=== PATIENT | male | born 1985 | race Two or more races ===

== ENCOUNTER 2016-05-23 19:07 | Emergency (ER) | payer OTHER ==
[~2016-05-23] VITALS: Ht 162.6 cm; Wt 79.4 kg
[~2016-05-23 19:07] MED LIST: UNOBMED; ZOFRAN ODT4 MG ORAL
[2016-05-23] MEDS ORDERED: TESSALON PERLE100 MG ORAL (20:16)
[2016-05-23] MEDS ORDERED: AMOXICILLIN500 MG ORAL (20:16)
[2016-05-23 20:35] VITALS: BP 117/74
--- NOTE | 2016-05-23 22:50 | Emergency Room Report ---
History of Present Illness General Chief Complaint: Upper Respiratory Illness Source: Patient Present Illness [facility] The patient is a 30-year-old male presenting for fever, sore throat, cough, and headache which began 1 week prior and has been worsening. He denies any sick contacts or recent travel. He has tried [id number] cough medications which have not helped. Pain is described as an 8/10 dull ache to the back of the throat. Pain worse with cough. Produces a green to yellow sputum. The patient denies any other symptoms including neck pain or stiffness, photophobia , shortness of breath, chest pain, hemoptysis Allergies: Coded Allergies: No Known Allergies (Unverified , 06/09/14) Patient History Past Medical History: see triage record Pertinent Family History: none Reviewed Nursing Documentation: PMH: Agreed, PSxH: Agreed Review of Systems All Other Systems: negative except mentioned in HPI Physical Exam Vital Signs Date Time Temp Pulse Resp B/P Pulse Ox O2 Delivery O2 Flow Rate FiO2 05/23/16 19:25 98.1 91 17 113/76 98 Room Air Sp02 EP Interpretation: reviewed, normal General Appearance: no apparent distress, alert, GCS 15, non-toxic Head: normocephalic, atraumatic Eyes: bilateral eye PERRL, bilateral eye normal inspection ENT: hearing grossly normal, no angioedema, normal voice, tonsillar swelling, pharyngeal erythema Neck: full range of motion, supple/symm/no masses Respiratory: chest non-tender, lungs clear, normal breath sounds, no wheezing, speaking full sentences Cardiovascular #1: regular rate, rhythm, no edema Musculoskeletal: back normal, gait/station normal, normal range of motion, non- tender Neurologic: alert, oriented x3, responsive, motor strength/tone normal, sensory intact, speech normal Psychiatric: judgement/insight normal, memory normal, mood/affect normal, no suicidal/homicidal ideation Skin: normal color, no rash, warm/dry, well hydrated Lymphatic: adenopathy Medical Decision Making PA Attestation Dr. Robledo is my supervising physician. Patient management was discussed with my supervising physician Diagnostic Impression: Primary Impression: Pharyngitis, acute Qualified Codes: J02.9 - Acute pharyngitis, unspecified ER Course The patient is a 30-year-old male presenting for fever, sore throat, cough, and headache Differential diagnosis include but not limited to pharyngitis, sinusitis, AOM, bronchitis, PNA Physical exam: Vitals within normal limits. Afebrile. No apparent distress HEENT exam: There is bilateral tonsillar edema, erythema, and exudate. Uvula midline. Moist mucous membranes. There is bilateral cervical lymphadenopathy. Lungs are clear to auscultation bilaterally Skin is warm and dry. No rash The patient will be discharged home with a prescription for amoxicillin and is given ER precautions. Patient will followup with primary care Last Vital Signs Date Time Temp Pulse Resp B/P Pulse Ox O2 Delivery O2 Flow Rate FiO2 05/23/16 20:35 98.9 87 15 117/74 99 Room Air Status: improved Disposition: HOME, SELF-CARE Condition: Improved Scripts Benzonatate* (TESSALON PERLE*) 100 Mg Capsule 100 MG ORAL THREE TIMES A DAY, #30 PERLE Prov: JOSE ORTIZ P.A. 05/23/16 Amoxicillin* (AMOXIL*) 500 Mg Capsule 500 MG ORAL Q12HR, #20 CAP Prov: JOSE ORTIZ.A. 05/23/16 Referrals: Jannie PACK,REFERRING (PCP) Patient Instructions: Sore Throat Additional Instructions: I discussed my findings with the patient. All questions and concerns have been answered. Treatment and medication compliance have been addressed. I advised the patient that they need to follow up with PMD in 3-5 days. Return to ED if pain remains or worsens, cough worsens or remains, you notice blood in your sputum, you notice wheezing, you experience a fever, or if needed for any reason. Patient verbalized understanding of discharge instructions. JOSE ORTIZ May 23, 2016 22:50
== END 2016-05-23 20:36 | disposition home or self-care (01) ==
LOC: EMR 19:59
DX: J02.9 Acute pharyngitis, unspecified (principal)
CPT/HCPCS: 99284

== ENCOUNTER 2016-07-02 00:55 | Emergency (ER) | payer OTHER ==
[~2016-07-02] VITALS: Ht 162.6 cm; Wt 79.4 kg
[~2016-07-02 00:55] MED LIST changes: +AMOXICILLIN500 MG ORAL; +TESSALON PERLE100 MG ORAL
[2016-07-02 01:15] VITALS: BP 125/76
[2016-07-02] MEDS ORDERED: LORazepam Inj 2mg/ml 1ml IV ONE ×3 (02:00→04:00)
[2016-07-02 02:41] LABS: BASOPHILS % (AUTO) 1.3 % (0.0-2.0); EOSINOPHILS % (AUTO) 3.5 % (0.0-3.0); LYMPHOCYTES % (AUTO) 34.2 % (20.0-45.0); MEAN CORPUSCULAR HEMOGLOBIN 31.4 PG (27.0-31.0); MEAN CORPUSCULAR HGB CONC 34.3 G/DL (32.0-36.0); MEAN CORPUSCULAR VOLUME 91 FL (80-99); MEAN PLATELET VOLUME 11.2 FL (6.5-10.1); MONOCYTES % (AUTO) 6.1 % (1.0-10.0); NEUTROPHILS % (AUTO) 54.8 % (45.0-75.0); PLATELET COUNT 198 K/UL (150-450); RED BLOOD COUNT 5.38 M/UL (4.70-6.10); WHITE BLOOD COUNT 10.2 K/UL (4.8-10.8)
[2016-07-02 02:59] LABS: ACETAMINOPHEN < 10 ug/mL (10-30); ALANINE AMINOTRANSFERASE 83 U/L (3-41); ALBUMIN/GLOBULIN RATIO 1.4 (1.0-2.7); ALCOHOL < 10 mg/dL; ANION GAP 16 (5-15); ASPARTATE AMINO TRANSFERASE 50 U/L (5-40); CALCIUM 9.4 mg/dL (8.6-10.2); CARBON DIOXIDE 24 mEQ/L (20-30); CHLORIDE 102 mEQ/L (98-107); CREATININE 0.7 mg/dL (0.7-1.2); GLOMERULAR FILTRATION RATE > 60 mL/min (>60); HEMOLYSIS 13; POTASSIUM 4.5 mEQ/L (3.4-4.9); SODIUM 142 mEQ/L (135-145); TOTAL PROTEIN 7.7 g/dL (6.6-8.7)
[2016-07-02 03:00] VITALS: BP 127/78
[2016-07-02] MEDS ORDERED: LIBRIUM25 MG ORAL (04:14)
[2016-07-02 05:00] VITALS: BP 114/81
[2016-07-02 06:00] VITALS: BP 115/82
[2016-07-02 06:05] VITALS: BP 115/82
--- NOTE | 2016-07-02 07:15 | Emergency Room Report ---
History of Present Illness General Chief Complaint: Headache Source: Patient Present Illness HPI 30-year-old male presents to ED for evaluation. States that he feels very anxious and is shaking. States he was drinking every day for several days but his last drink was approximately 4 days ago. Feels like he is going through withdrawals. Patient states he has history of chronic alcohol use has had withdrawal in the past. Denies any other drug use. Denies chest pain or shortness of breath. Notes nausea, denies vomiting. No other aggravating relieving factors. Denies any other associated symptoms Allergies: Coded Allergies: No Known Allergies (Unverified , 06/09/14) Patient History Past Medical History: none Past Surgical History: none Pertinent Family History: none Social History: Reports: alcohol use, Denies: drug use, smoking Immunizations: UTD Reviewed Nursing Documentation: PMH: Agreed, PSxH: Agreed Review of Systems All Other Systems: negative except mentioned in HPI Physical Exam Vital Signs Date Time Temp Pulse Resp B/P Pulse Ox O2 Delivery O2 Flow Rate FiO2 07/02/16 01:06 98.1 96 16 129/75 96 Room Air Sp02 EP Interpretation: reviewed, normal General Appearance: no apparent distress, alert, GCS 15, non-toxic Head: normocephalic, atraumatic Eyes: bilateral eye PERRL, bilateral eye normal inspection ENT: hearing grossly normal, normal pharynx, no angioedema, normal voice Neck: full range of motion, supple/symm/no masses Respiratory: chest non-tender, lungs clear, normal breath sounds, speaking full sentences Cardiovascular #1: regular rate, rhythm, no edema Cardiovascular #2: 2+ carotid (R), 2+ carotid (L), 2+ radial (R), 2+ radial (L) , 2+ dorsalis pedis (R), 2+ dorsalis pedis (L) Gastrointestinal: normal bowel sounds, non tender, soft, non-distended, no guarding, no rebound Rectal: deferred Genitourinary: normal inspection, no CVA tenderness Musculoskeletal: back normal, gait/station normal, normal range of motion, non- tender Neurologic: alert, oriented x3, responsive, motor strength/tone normal, sensory intact, speech normal Psychiatric: judgement/insight normal, memory normal, no suicidal/homicidal ideation, anxious Reflexes: 3+ bicep (R), 3+ bicep (L), 3+ tricep (R), 3+ tricep (L), 3+ knee (R) , 3+ knee (L) Skin: normal color, no rash, warm/dry, well hydrated Lymphatic: no adenopathy Medical Decision Making Diagnostic Impression: Primary Impression: Anxiety Additional Impression: Alcohol withdrawal Qualified Codes: F10.230 - Alcohol dependence with withdrawal, uncomplicated ER Course Hospital Course 30-year-old male presents ED complaining of shaking, stating he is in withdrawal. Chronic history of alcohol use Differential diagnoses include: Alcohol intoxication, drug abuse, opioid withdrawal, alcohol withdrawal, dehydration, drug seeking behavior Clinical course Patient placed on stretcher. On front desk monitor. After initial history and physical I ordered labs, IV fluids, Ativan Labs reviewed-electrolytes okay, hemoglobin/hematocrit stable, no leukocytosis, alcohol level < 10, aspirin/Tylenol levels negative no signs of acute withdrawal or DTs. patient can be safely discharged to home i. I feel this is a highly complex case requiring extensive working including EKG/Rhythm strip, Xray/CT/US, Blood/urine lab work, repeat exams while in ED, and administration of strong opiates/narcotics for pain control, admission to hospital or close patient follow up. Diagnosis - anxiety, alcohol withdrawal Stable and discharged to home with prescription for Librium. Followup with PMD. Return to ED if symptoms recur or worsen Labs Test 07/02/16 02:20 07/02/16 02:25 Urine Opiates Screen Negative (NEGATIVE) Urine Barbiturates Screen Negative (NEGATIVE) Phencyclidine (PCP) Screen Negative (NEGATIVE) Urine Amphetamines Screen Negative (NEGATIVE) Urine Benzodiazepines Screen Negative (NEGATIVE) Urine Cocaine Screen Negative (NEGATIVE) Urine Marijuana (THC) Screen Negative (NEGATIVE) White Blood Count 10.2 K/UL (4.8-10.8) Red Blood Count 5.38 M/UL (4.70-6.10) Hemoglobin 16.9 G/DL (14.2-18.0) Hematocrit 49.2 % (42.0-52.0) Mean Corpuscular Volume 91 FL (80-99) Mean Corpuscular Hemoglobin 31.4 PG (27.0-31.0) Mean Corpuscular Hemoglobin Concent 34.3 G/DL (32.0-36.0) Red Cell Distribution Width 12.0 % (11.6-14.8) Platelet Count 198 K/UL (150-450) Mean Platelet Volume 11.2 FL (6.5-10.1) Neutrophils (%) (Auto) 54.8 % (45.0-75.0) Lymphocytes (%) (Auto) 34.2 % (20.0-45.0) Monocytes (%) (Auto) 6.1 % (1.0-10.0) Eosinophils (%) (Auto) 3.5 % (0.0-3.0) Basophils (%) (Auto) 1.3 % (0.0-2.0) Sodium Level 142 mEQ/L (135-145) Potassium Level 4.5 mEQ/L (3.4-4.9) Chloride Level 102 mEQ/L (98-107) Carbon Dioxide Level 24 mEQ/L (20-30) Anion Gap 16 (5-15) Blood Urea Nitrogen 20 mg/dL (7-23) Creatinine 0.7 mg/dL (0.7-1.2) Estimat Glomerular Filtration Rate > 60 mL/min (>60) Glucose Level 99 mg/dL (74-106) Calcium Level 9.4 mg/dL (8.6-10.2) Total Bilirubin 0.7 mg/dL (0.0-1.2) Aspartate Amino Transf (AST/SGOT) 50 U/L (5-40) Alanine Aminotransferase (ALT/SGPT) 83 U/L (3-41) Alkaline Phosphatase 162 U/L (40-129) Total Protein 7.7 g/dL (6.6-8.7) Albumin 4.5 g/dL (3.5-5.2) Globulin 3.2 g/dL Albumin/Globulin Ratio 1.4 (1.0-2.7) Salicylates Level < 1 mg/dL (10-30) Acetaminophen Level < 10 ug/mL (10-30) Serum Alcohol < 10 mg/dL Last Vital Signs Date Time Temp Pulse Resp B/P Pulse Ox O2 Delivery O2 Flow Rate FiO2 07/02/16 06:05 98.2 71 17 115/82 100 Room Air Status: improved Disposition: HOME, SELF-CARE Condition: Stable Scripts Chlordiazepoxide (Chlordiazepoxide HCl) 25 Mg Capsule 25 MG ORAL THREE TIMES A DAY, #15 CAP 0 Refills Prov: [place],JOVANI M.D. 07/02/16 Patient Instructions: Alcohol Intoxication, Eqef-ke-Vavy JOVANI RAMESH M.D. July 02, 2016 07:15
--- NOTE | 2016-07-02 09:26 | Diagnostic Imaging Report ---
Indication: Headache Technique: Continuous helical CT scanning of the head was performed without intravenous contrast material. Axial and coronal 5 mm sections were generated. Radiation dose was minimized using automated exposure control Dose: Total Dose Length Product - DLP [address] Dose Index - CTDIvol(s) 70.38 mGy. Comparison: 06/09/2014 Findings: The ventricular system is normal in size and configuration. There is no shift of midline structures. No abnormal extra-axial fluid collections are noted. There is no evidence of intracerebral bleeding. No other abnormal high or low density areas are noted within the brain. Calvarium is intact. Orbits and sinuses are unremarkable Impression: Normal CT scan of the head without contrast material. This agrees with the preliminary interpretation provided overnight by [facility]. The CT scanner at [facility] is accredited by the [employer] and the scans are performed using protocols designed to limit radiation exposure to as low as reasonably achievable to attain images of sufficient resolution adequate for diagnostic evaluation.
== END 2016-07-02 06:00 | disposition home or self-care (01) ==
LOC: EMR 01:25
DX: F10.239 Alcohol dependence with withdrawal, unspecified (principal); F41.9 Anxiety disorder, unspecified
CPT/HCPCS: 36415; 70450; 80053; 80300; 80329; 85025; 96360; 96374; 96375; 99284; J2405

== ENCOUNTER 2016-07-23 01:56 | Emergency (ER) | payer OTHER ==
[~2016-07-23] VITALS: Ht 162.6 cm; Wt 79.4 kg
[~2016-07-23 01:56] MED LIST changes: +LIBRIUM25 MG ORAL
--- NOTE | 2016-07-23 02:47 | Emergency Room Report ---
History of Present Illness General Chief Complaint: General Complaint Source: Patient Present Illness HPI Patient presents reporting that he was binge shaking last week fairly heavily now that he stopped over the past few days he feels tremulous He felt nauseated Decreased appetite Denies any headache or visual changes denies any chest pain or shortness of breath denies any vomiting of blood or any blood in the stool Patient has had previous alcohol abuse Allergies: Coded Allergies: No Known Allergies (Unverified , 07/23/16) Patient History Past Medical History: see triage record Pertinent Family History: none Reviewed Nursing Documentation: PMH: Agreed, PSxH: Agreed Nursing Documentation-PMH Past Medical History: No History, Except For Review of Systems All Other Systems: negative except mentioned in HPI Physical Exam Vital Signs Date Time Temp Pulse Resp B/P Pulse Ox O2 Delivery O2 Flow Rate FiO2 07/23/16 02:17 98.1 102 16 145/99 96 Room Air Sp02 EP Interpretation: reviewed, normal General Appearance: well appearing, no apparent distress Head: normocephalic, atraumatic Eyes: bilateral eye EOMI, bilateral eye PERRL ENT: hearing grossly normal, normal pharynx, TMs + canals normal, uvula midline Neck: full range of motion, supple, no meningismus, no bony tend Respiratory: lungs clear, normal breath sounds, no rhonchi, no respiratory distress, no retraction, no accessory muscle use Cardiovascular #1: normal peripheral pulses, regular rate, rhythm, no edema, no gallop, no JVD, no murmur Gastrointestinal: normal bowel sounds, non tender, soft, no mass, no organomegaly, non-distended, no guarding, no hernia, no pulsatile mass, no rebound Genitourinary: no CVA tenderness Musculoskeletal: normal inspection Neurologic: oriented x3, responsive, distribution manager III-XII nml as tested, motor strength/ tone normal, sensory intact Psychiatric: mood/affect normal Skin: normal color, no rash, warm/dry, palpation normal Lymphatic: normal inspection, no adenopathy Medical Decision Making Diagnostic Impression: Primary Impression: Alcohol abuse ER Course On evaluation patient has a normal heart rate does not appear tremulous However given his symptoms and the recent alcohol ingestion I did provide him with Ativan for symptomatic improvement At this time patient is on a criteria for further blood work in the emergency room he has had fairly recent evaluation with extensive blood work At this time was provided outpatient resource for alcohol abuse Patient however apparently left prior to further intervention and eloped prior to final reevaluation Last Vital Signs Date Time Temp Pulse Resp B/P Pulse Ox O2 Delivery O2 Flow Rate FiO2 07/23/16 02:17 98.1 102 16 145/99 96 Room Air Status: unchanged Disposition: ELOPED Condition: Stable Referrals: [facility]ERR[facility] (PCP) AB SANCHEZ D.O. Jul 23, 2016 02:47
[2016-07-23] MEDS: LORazepam Inj 2mg/ml 1ml IM ONE ×2 (02:54→02:59)
[2016-07-23 03:00] VITALS: BP 145/99
== END 2016-07-23 03:00 | disposition left against medical advice (07) ==
LOC: EMR 02:42
DX: F10.10 Alcohol abuse, uncomplicated (principal)
CPT/HCPCS: 99284

== ENCOUNTER 2016-12-19 00:46 | Emergency (ER) | payer OTHER ==
[~2016-12-19] VITALS: Ht 162.6 cm; Wt 80.7 kg
--- NOTE | 2016-12-19 00:49 | Emergency Room Report ---
History of Present Illness General Chief Complaint: To Be Triaged Source: Patient, Medical Record Present Illness HPI 31YOM with 3 days sore throat, pain in center when swallowing, subjective fever , dry cough, associated with left sided headache Didnt get flu vaccine this year No sick contacts ?history of asthma Non-smoker Denies rhinorrhea, congestion Multiple visits here for ETOH abuse Allergies: Coded Allergies: No Known Allergies (Unverified , 07/23/16) Patient History Past Medical History: none Past Surgical History: none Pertinent Family History: none Social History: Reports: alcohol use Review of Systems All Other Systems: negative except mentioned in HPI Physical Exam Sp02 EP Interpretation: reviewed, normal General Appearance: normal inspection, well appearing, no apparent distress, alert, GCS 15, non-toxic Head: normocephalic, atraumatic Eyes: bilateral eye PERRL, bilateral eye EOMI ENT: normal ENT inspection, hearing grossly normal, normal pharynx, no angioedema, normal voice, TMs + canals normal, uvula midline, moist mucus membranes Neck: normal inspection, full range of motion, supple, no bony tend Respiratory: normal inspection, lungs clear, normal breath sounds, no respiratory distress, no retraction, no accessory muscle use, no wheezing, speaking full sentences Cardiovascular #1: regular rate, rhythm, no edema Gastrointestinal: normal inspection, normal bowel sounds, non tender, soft, no guarding, no hernia Genitourinary: no CVA tenderness Musculoskeletal: normal inspection, back normal, normal range of motion, Junior' s Sign negative Neurologic: normal inspection, alert, oriented x3, responsive, 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 Afebrile Mild tachycardia but not hypoxic Lungs CTAB. No wheezing or rhonchi No sign of acute strep infection in oropharynx Given IM toradol, Albuterol Likely viral infection, bronchitis Rx Ibuprofen, MDI ventolin PMD followup [facility] ome Status: improved Disposition: HOME, SELF-CARE BENNETT JADE M.D. Dec 19, 2016 00:48
--- NOTE | 2016-12-19 00:49 | Emergency Room Report ---
History of Present Illness General Chief Complaint: To Be Triaged Source: Patient, Medical Record Present Illness HPI 31YOM with 3 days sore throat, pain in center when swallowing, subjective fever , dry cough, associated with left sided headache Didnt get flu vaccine this year No sick contacts ?history of asthma Non-smoker Denies rhinorrhea, congestion Multiple visits here for ETOH abuse Allergies: Coded Allergies: No Known Allergies (Unverified , 07/23/16) Patient History Past Medical History: none Past Surgical History: none Pertinent Family History: none Social History: Reports: alcohol use Review of Systems All Other Systems: negative except mentioned in HPI Physical Exam Sp02 EP Interpretation: reviewed, normal General Appearance: normal inspection, well appearing, no apparent distress, alert, GCS 15, non-toxic Head: normocephalic, atraumatic Eyes: bilateral eye PERRL, bilateral eye EOMI ENT: normal ENT inspection, hearing grossly normal, normal pharynx, no angioedema, normal voice, TMs + canals normal, uvula midline, moist mucus membranes Neck: normal inspection, full range of motion, supple, no bony tend Respiratory: normal inspection, lungs clear, normal breath sounds, no respiratory distress, no retraction, no accessory muscle use, no wheezing, speaking full sentences Cardiovascular #1: regular rate, rhythm, no edema Gastrointestinal: normal inspection, normal bowel sounds, non tender, soft, no guarding, no hernia Genitourinary: no CVA tenderness Musculoskeletal: normal inspection, back normal, normal range of motion, Junior' s Sign negative Neurologic: normal inspection, alert, oriented x3, responsive, clinical pharmacologist III-XII nml as tested, speech normal Psychiatric: normal inspection, judgement/insight normal, mood/affect normal Skin: normal inspection, normal color, no rash Medical Decision Making Diagnostic Impression: Primary Impression: Viral respiratory illness Additional Impressions: Bronchitis Pharyngitis Qualified Codes: J02.9 - Acute pharyngitis, unspecified ER Course VSS. Afebrile Mild tachycardia but not hypoxic Lungs CTAB. No wheezing or rhonchi No sign of acute strep infection in oropharynx Given IM toradol, Albuterol Likely viral infection, bronchitis Rx Ibuprofen, MDI ventolin PMD followup [facility] ome Status: improved Disposition: HOME, SELF-CARE BENNETT JADE M.D. Dec 19, 2016 00:48
--- NOTE | 2016-12-19 00:49 | Emergency Room Report ---
History of Present Illness General Chief Complaint: To Be Triaged Source: Patient, Medical Record Present Illness HPI 31YOM with 3 days sore throat, pain in center when swallowing, subjective fever , dry cough, associated with left sided headache Didnt get flu vaccine this year No sick contacts ?history of asthma Non-smoker Denies rhinorrhea, congestion Multiple visits here for ETOH abuse Allergies: Coded Allergies: No Known Allergies (Unverified , 07/23/16) Patient History Past Medical History: none Past Surgical History: none Pertinent Family History: none Social History: Reports: alcohol use Review of Systems All Other Systems: negative except mentioned in HPI Physical Exam Sp02 EP Interpretation: reviewed, normal General Appearance: normal inspection, well appearing, no apparent distress, alert, GCS 15, non-toxic Head: normocephalic, atraumatic Eyes: bilateral eye PERRL, bilateral eye EOMI ENT: normal ENT inspection, hearing grossly normal, normal pharynx, no angioedema, normal voice, TMs + canals normal, uvula midline, moist mucus membranes Neck: normal inspection, full range of motion, supple, no bony tend Respiratory: normal inspection, lungs clear, normal breath sounds, no respiratory distress, no retraction, no accessory muscle use, no wheezing, speaking full sentences Cardiovascular #1: regular rate, rhythm, no edema Gastrointestinal: normal inspection, normal bowel sounds, non tender, soft, no guarding, no hernia Genitourinary: no CVA tenderness Musculoskeletal: normal inspection, back normal, normal range of motion, Junior' s Sign negative Neurologic: normal inspection, alert, oriented x3, responsive, 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 Afebrile Mild tachycardia but not hypoxic Lungs CTAB. No wheezing or rhonchi No sign of acute strep infection in oropharynx Given IM toradol, Albuterol Likely viral infection, bronchitis Rx Ibuprofen, MDI ventolin PMD followup [facility] ome Status: improved Disposition: HOME, SELF-CARE BENNETT JADE M.D. Dec 19, 2016 00:48
[2016-12-19 00:52] VITALS: BP 117/75
[2016-12-19] MEDS ORDERED: Ketorolac 60mg Inj IM ONE (01:00)
[2016-12-19] MEDS ORDERED: Albuterol ud Inhalation HHN ONE (01:00)
[2016-12-19] MEDS ORDERED: VENTOLIN HFA18 GM INH (01:03)
[2016-12-19] MEDS ORDERED: IBUPROFEN600 MG ORAL (01:03)
[2016-12-19 01:29] VITALS: BP 117/75
== END 2016-12-19 01:41 | disposition home or self-care (01) ==
LOC: EMR 01:03
DX: J20.8 Acute bronchitis due to other specified organisms (principal); J02.8 Acute pharyngitis due to other specified organisms; B97.89 Other viral agents as the cause of diseases classified elsewhere
CPT/HCPCS: 96372; 99283

== ENCOUNTER 2017-02-12 20:28 | Emergency (ER) | payer OTHER ==
[~2017-02-12] VITALS: Ht 162.6 cm; Wt 81.6 kg
[~2017-02-12 20:28] MED LIST changes: +IBUPROFEN600 MG ORAL; +VENTOLIN HFA18 GM INH
[2017-02-12 20:45] VITALS: BP 108/76
[2017-02-12 22:40] LABS: BASOPHILS % (AUTO) 0.9 % (0.0-2.0); EOSINOPHILS % (AUTO) 0.7 % (0.0-3.0); HEMATOCRIT 52.8 % (42.0-52.0); HEMOGLOBIN 16.1 G/DL (14.2-18.0); LYMPHOCYTES % (AUTO) 32.2 % (20.0-45.0); MEAN CORPUSCULAR VOLUME 94 FL (80-99); NEUTROPHILS % (AUTO) 60.3 % (45.0-75.0); PLATELET COUNT 227 K/UL (150-450); RED BLOOD COUNT 5.63 M/UL (4.70-6.10); RED CELL DISTRIBUTION WIDTH 11.8 % (11.6-14.8); WHITE BLOOD COUNT 9.4 K/UL (4.8-10.8)
[2017-02-12 22:45] VITALS: BP 111/65
[2017-02-13 00:45] VITALS: BP 119/70
[2017-02-13 02:45] VITALS: BP 118/78
[2017-02-13 04:05] VITALS: BP 121/71
[2017-02-13] MEDS ORDERED: PRILOSEC OTC20 MG ORAL (04:15)
--- NOTE | 2017-02-13 04:16 | Emergency Room Report ---
History of Present Illness General Chief Complaint: Vomiting Source: Medical Record, EMS Present Illness HPI Is a 31-year-old male who has a history of alcohol abuse, cirrhosis and hepatitis C. He called 911 from a liquor store. He said his vomiting blood. Unable to give a history here because of his severe intoxication. He has no vomiting here. Present meds alcohol use per EMS. No other complaint. No trauma. Allergies: Coded Allergies: No Known Allergies (Unverified , 07/23/16) Patient History Past Medical History: see triage record, old chart reviewed Past Surgical History: none Pertinent Family History: none Social History: Reports: alcohol use Immunizations: other Reviewed Nursing Documentation: PMH: Agreed, PSxH: Agreed Review of Systems Gastrointestinal: Reports: nausea, vomiting All Other Systems: limited - Secondary to intoxication Physical Exam Vital Signs Date Time Temp Pulse Resp B/P (MAP) Pulse Ox O2 Delivery O2 Flow Rate FiO2 02/12/17 20:41 97.9 110 16 108/76 97 Room Air vitals unremarkable Sp02 EP Interpretation: reviewed, normal General Appearance: well appearing, no apparent distress, alert, other - Intoxicated Head: normocephalic, atraumatic Eyes: bilateral eye PERRL, bilateral eye EOMI ENT: hearing grossly normal, normal pharynx Neck: full range of motion, supple, no meningismus Respiratory: chest non-tender, lungs clear, normal breath sounds Cardiovascular #1: regular rate, rhythm, no murmur Gastrointestinal: normal bowel sounds, non tender, no mass, no organomegaly, no bruit, non-distended Musculoskeletal: back normal, normal range of motion Skin: warm/dry Medical Decision Making Diagnostic Impression: Primary Impression: Alcohol intoxication Additional Impression: Alcoholic gastritis with bleeding Qualified Codes: K29.21 - Alcoholic gastritis with bleeding ER Course Patient with alcohol intoxication and gastritis. No active bleeding here. Hemoglobin is stable. We'll discharge home. His high risk for variceal bleed and any doesn't stop drinking. We'll observe patient until clinical sobriety. Last Vital Signs Date Time Temp Pulse Resp B/P (MAP) Pulse Ox O2 Delivery O2 Flow Rate FiO2 02/12/17 20:41 97.9 110 16 108/76 97 Room Air Status: improved Disposition: HOME, SELF-CARE Condition: Stable Scripts Omeprazole Magnesium (PRILOSEC OTC) 20 Mg Tablet.dr 20 MG ORAL DAILY, #30 TAB Prov: RONALD PRITCHETT M.D. 02/13/17 Referrals: [facility] (PCP) Additional Instructions: Stop drinking alcohol. This will kill you. Followup with your DrNhung in 7 days. Return if worse. RONALD PRITCHETT M.D. Feb 13, 2017 04:16
[2017-03-31] MEDS ORDERED: NORCO 5-325 TA1 EAC1 ORAL (16:43)
[2017-03-31] MEDS ORDERED: ZANTAC150 MG ORAL (18:35)
[2017-03-31] MEDS ORDERED: LIDOCAINE VISC100 ML ORAL (18:35)
== END 2017-02-13 04:05 | disposition home or self-care (01) ==
LOC: EDBD 20:28 → EMR 20:40
DX: F10.129 Alcohol abuse with intoxication, unspecified (principal); K29.21 Alcoholic gastritis with bleeding; K70.30 Alcoholic cirrhosis of liver without ascites; B19.20 Unspecified viral hepatitis C without hepatic coma
CPT/HCPCS: 36415; 85025; 99283

== ENCOUNTER 2017-03-06 16:49 | Emergency (ER) | payer OTHER ==
[~2017-03-06] VITALS: Ht 162.6 cm; Wt 81.6 kg
[~2017-03-06 16:49] MED LIST changes: +PRILOSEC OTC20 MG ORAL
--- NOTE | 2017-03-06 17:35 | Emergency Room Report ---
History of Present Illness General Chief Complaint: General Complaint Source: Patient Present Illness HPI Patient is a 31-year-old male who presents today with complaints of coughing and he dislocated his jaw on 02/20/2017 and had surgery on the . He has been taking Temple and with some relief of the pain. He is also complaining of a temperature of 103 in earlier today and. Last dose of Tylenol to this morning , patient afebrile on arrival.Patient is complaining of a foul odor from his mouth. He denies any nausea, vomiting, or associated symptoms. Allergies: Coded Allergies: No Known Allergies (Unverified , 07/23/16) Patient History Reviewed Nursing Documentation: PMH: Agreed, PSxH: Agreed Nursing Documentation-PMH Past Medical History: No History, Except For Hx Cardiac Problems: No - HEP C, ANEMIA, Jaw dislocation surgery. Hx Hypertension: No Hx Pacemaker: No Hx Asthma: No Hx COPD: No Hx Diabetes: No Hx Cancer: No Hx Gastrointestinal Problems: Yes - LIVER CIRRHOSIS,GASTRITIS Hx Dialysis: No History Of Psychiatric Problem: No Hx Neurological Problems: No Hx Cerebrovascular Accident: No Hx Seizures: No Review of Systems Musculoskeletal: Reports: other - jaw pain All Other Systems: negative except mentioned in HPI Physical Exam Vital Signs Date Time Temp Pulse Resp B/P (MAP) Pulse Ox O2 Delivery O2 Flow Rate FiO2 03/06/17 16:53 98.1 88 16 118/74 95 Room Air Sp02 EP Interpretation: reviewed, normal General Appearance: no apparent distress, alert, GCS 15, non-toxic Head: normocephalic, atraumatic Eyes: bilateral eye normal inspection, bilateral eye PERRL ENT: hearing grossly normal, normal pharynx, no angioedema, normal voice, other - mild edema of left jaw, no abscess noted. uvula midline, no ludwigs angina Neck: full range of motion, supple/symm/no masses Respiratory: chest non-tender, lungs clear, normal breath sounds, speaking full sentences Cardiovascular #1: regular rate, rhythm, no edema Cardiovascular #2: 2+ carotid (R), 2+ carotid (L), 2+ radial (R), 2+ radial (L) , 2+ dorsalis pedis (R), 2+ dorsalis pedis (L) Gastrointestinal: normal bowel sounds, non tender, soft, non-distended, no guarding, no rebound Rectal: deferred Genitourinary: normal inspection, no CVA tenderness Musculoskeletal: back normal, gait/station normal, normal range of motion, non- tender, calf tenderness Neurologic: alert, oriented x3, responsive, motor strength/tone normal, sensory intact, speech normal Psychiatric: judgement/insight normal, memory normal, mood/affect normal, no suicidal/homicidal ideation Reflexes: 3+ bicep (R), 3+ bicep (L), 3+ tricep (R), 3+ tricep (L), 3+ knee (R) , 3+ knee (L) Skin: normal color, no rash, warm/dry, well hydrated Lymphatic: no adenopathy Medical Decision Making PA Attestation supervising physician Dr. Salamanca Diagnostic Impression: Primary Impression: History of oral surgery Additional Impression: Jaw pain ER Course Will treat empirically with antibiotics. No obvious abscess or cellulitis noted. Dr. Salamanca personally evaluated the patient in treatment disposition. Patient and has followup with surgeon early next week. The patient understands plan and is agreeable. Last Vital Signs Date Time Temp Pulse Resp B/P (MAP) Pulse Ox O2 Delivery O2 Flow Rate FiO2 03/06/17 16:53 98.1 88 16 118/74 95 Room Air Status: improved Disposition: HOME, SELF-CARE Condition: Stable Patient Instructions: Jaw Dislocation, [id number] Gabby Brooks Mar 06, 2017 17:34
[2017-03-06] MEDS ORDERED: CLINDAMYCIN HC300 MG ORAL (17:36)
[2017-03-06 17:54] VITALS: BP 118/74
[2017-03-31] MEDS ORDERED: NORCO 5-325 TA1 EAC1 ORAL (16:43)
[2017-03-31] MEDS ORDERED: LIDOCAINE VISC100 ML ORAL (18:35)
[2017-03-31] MEDS ORDERED: ZANTAC150 MG ORAL (18:35)
== END 2017-03-06 17:59 | disposition home or self-care (01) ==
LOC: EMR 17:52
DX: R68.84 Jaw pain (principal); Z98.890 Other specified postprocedural states; B19.20 Unspecified viral hepatitis C without hepatic coma; K74.60 Unspecified cirrhosis of liver
CPT/HCPCS: 99283

== ENCOUNTER → 2017-03-31 | Emergency (ER) | payer OTHER ==
[~2017-03-31] VITALS: Ht 162.6 cm; Wt 81.6 kg
[~2017-03-31] MED LIST changes: +CLINDAMYCIN HC300 MG ORAL; +LIBRIUM10 MG ORAL; +LIDOCAINE VISC100 ML ORAL; +LORazepam Inj 2mg/ml 1ml IV ONE; +Morphine Sulfate 4mg/ml Inj IVP ONE; +NORCO 5-325 TA1 EAC1 ORAL; +PEPCID20 MG ORAL; +ZANTAC150 MG ORAL
[2017-03-31 17:05] VITALS: BP 150/77
[2017-03-31 18:12] LABS: HEMATOCRIT 47.2 % (42.0-52.0); HEMOGLOBIN 16.3 G/DL (14.2-18.0); MEAN CORPUSCULAR VOLUME 91 FL (80-99); PLATELET COUNT 96 K/UL (150-450); RED BLOOD COUNT 5.21 M/UL (4.70-6.10); RED CELL DISTRIBUTION WIDTH 12.1 % (11.6-14.8); WHITE BLOOD COUNT 5.8 K/UL (4.8-10.8)
[2017-03-31 18:17] LABS: ANION GAP 6 mmol/L (5-15); BLOOD UREA NITROGEN 8 mg/dL (7-18); CALCIUM 8.8 MG/DL (8.5-10.1); CARBON DIOXIDE 29 MMOL/L (21-32); CHLORIDE 100 MMOL/L (98-107); CREATININE 0.7 MG/DL (0.55-1.30); POTASSIUM 3.7 MMOL/L (3.5-5.1); SODIUM 135 MMOL/L (136-145)
[2017-03-31 18:27] LABS: ALANINE AMINOTRANSFERASE 107 U/L (12-78); ALBUMIN 3.7 G/DL (3.4-5.0); ALKALINE PHOSPHATASE 101 U/L (46-116); ASPARTATE AMINO TRANSFERASE 137 U/L (15-37); BILIRUBIN,TOTAL 1.8 MG/DL (0.2-1.0)
[2017-03-31 18:32] LABS: BILIRUBIN,DIRECT 0.2 MG/DL (0.0-0.3)
[2017-03-31 19:46] VITALS: BP 150/77
--- NOTE | 2017-03-31 21:11 | Emergency Room Report ---
History of Present Illness General Chief Complaint: Nausea, Vomiting, and Diarrhea Source: Patient Present Illness HPI 31-year-old male presents ED complaining of abdominal pain with nausea and vomiting. Started today. History of gastritis. Pain is epigastric, 8/10, nonradiating. Notes multiple episodes of nausea and vomiting. She feels very anxious. History of anxiety. Denies chest pain or shortness of breath. Denies fevers or chills. No other aggravating relieving factors. Denies any other associated symptoms Allergies: Coded Allergies: No Known Allergies (Unverified , 07/23/16) Patient History Past Medical History: GERD, psych hx Past Surgical History: none Pertinent Family History: none Social History: Denies: smoking, alcohol use, drug use Immunizations: UTD Reviewed Nursing Documentation: PMH: Agreed, PSxH: Agreed Nursing Documentation-PMH Past Medical History: No History, Except For Hx Cardiac Problems: No - HEP C, ANEMIA, Jaw dislocation surgery. Hx Hypertension: No Hx Pacemaker: No Hx Asthma: No Hx COPD: No Hx Diabetes: No Hx Cancer: No Hx Gastrointestinal Problems: Yes - LIVER CIRRHOSIS,GASTRITIS Hx Dialysis: No Hx Neurological Problems: No Hx Cerebrovascular Accident: No Hx Seizures: No Review of Systems All Other Systems: negative except mentioned in HPI Physical Exam Vital Signs Date Time Temp Pulse Resp B/P (MAP) Pulse Ox O2 Delivery O2 Flow Rate FiO2 03/31/17 16:39 98.1 95 20 150/77 98 Room Air 98.1 Sp02 EP Interpretation: reviewed, normal General Appearance: alert, GCS 15, non-toxic Head: normocephalic, atraumatic Eyes: bilateral eye normal inspection, bilateral eye PERRL ENT: hearing grossly normal, normal pharynx, no angioedema, normal voice Neck: full range of motion, supple/symm/no masses Respiratory: chest non-tender, lungs clear, normal breath sounds, speaking full sentences Cardiovascular #1: regular rate, rhythm, no edema Cardiovascular #2: 2+ carotid (R), 2+ carotid (L), 2+ radial (R), 2+ radial (L) , 2+ dorsalis pedis (R), 2+ dorsalis pedis (L) Gastrointestinal: normal bowel sounds, soft, non-distended, no guarding, no rebound, tenderness - epigastric Rectal: deferred Genitourinary: normal inspection, no CVA tenderness Musculoskeletal: back normal, gait/station normal, normal range of motion, non- tender Neurologic: alert, oriented x3, responsive, motor strength/tone normal, sensory intact, speech normal Psychiatric: judgement/insight normal, memory normal, mood/affect normal, no suicidal/homicidal ideation Reflexes: 3+ bicep (R), 3+ bicep (L), 3+ tricep (R), 3+ tricep (L), 3+ knee (R) , 3+ knee (L) Skin: normal color, no rash, warm/dry, well hydrated Lymphatic: no adenopathy Medical Decision Making Diagnostic Impression: Primary Impression: Gastritis Qualified Codes: K29.70 - Gastritis, unspecified, without bleeding Additional Impression: Anxiety ER Course Hospital Course 31-year-old M presents to ED with epigastric pain with N/V. differential diagnosis: gastritis, SBO, cholecystits Clinical course Patient placed on stretcher. On senior care assistant. After initial history and physical I ordered labs, IV fluids, Zofran and pepcid, morphine and ativan Labs - no leukocytosis, no electrolyte abnormalities, LFTs normal Upon reassessment, patient states pain has improved. findings consistent with gastritis I feel this is a highly complex case requiring extensive working including EKG/ Rhythm strip, Xray/CT/US, Blood/urine lab work, repeat exams while in ED, and administration of strong opiates/narcotics for pain control, admission to hospital or close patient follow up. Diagnosis - gastritis, anxiety Stable and discharged to home with prescriptions for Zantac, visous lidocaine. Followup with PMD. Return to ED if symptoms recur or worsen Labs Test 03/31/17 17:31 White Blood Count 5.8 K/UL (4.8-10.8) Red Blood Count 5.21 M/UL (4.70-6.10) Hemoglobin 16.3 G/DL (14.2-18.0) Hematocrit 47.2 % (42.0-52.0) Mean Corpuscular Volume 91 FL (80-99) Mean Corpuscular Hemoglobin 31.3 PG (27.0-31.0) Mean Corpuscular Hemoglobin Concent 34.5 G/DL (32.0-36.0) Red Cell Distribution Width 12.1 % (11.6-14.8) Platelet Count 96 K/UL (150-450) Mean Platelet Volume 11.1 FL (6.5-10.1) Neutrophils (%) (Auto) % (45.0-75.0) Lymphocytes (%) (Auto) % (20.0-45.0) Monocytes (%) (Auto) % (1.0-10.0) Eosinophils (%) (Auto) % (0.0-3.0) Basophils (%) (Auto) % (0.0-2.0) Differential Total Cells Counted 100 Neutrophils % (Manual) 75 % (45-75) Lymphocytes % (Manual) 15 % (20-45) Monocytes % (Manual) 8 % (1-10) Eosinophils % (Manual) 2 % (0-3) Basophils % (Manual) 0 % (0-2) Band Neutrophils 0 % (0-8) Platelet Estimate Decreased Platelet Morphology Normal Red Blood Cell Morphology Normal Sodium Level 135 MMOL/L (136-145) Potassium Level 3.7 MMOL/L (3.5-5.1) Chloride Level 100 MMOL/L (98-107) Carbon Dioxide Level 29 MMOL/L (21-32) Anion Gap 6 mmol/L (5-15) Blood Urea Nitrogen 8 mg/dL (7-18) Creatinine 0.7 MG/DL (0.55-1.30) Estimat Glomerular Filtration Rate > 60 mL/min (>60) Glucose Level 102 MG/DL (74-106) Calcium Level 8.8 MG/DL (8.5-10.1) Total Bilirubin 1.8 MG/DL (0.2-1.0) Direct Bilirubin 0.2 MG/DL (0.0-0.3) Aspartate Amino Transf (AST/SGOT) 137 U/L (15-37) Alanine Aminotransferase (ALT/SGPT) 107 U/L (12-78) Alkaline Phosphatase 101 U/L (46-116) Total Protein 7.4 G/DL (6.4-8.2) Albumin 3.7 G/DL (3.4-5.0) Globulin 3.7 g/dL Albumin/Globulin Ratio 1.0 (1.0-2.7) Lipase 296 U/L (73-393) Last Vital Signs Date Time Temp Pulse Resp B/P (MAP) Pulse Ox O2 Delivery O2 Flow Rate FiO2 03/31/17 19:46 98.1 20 150/77 98 Room Air 208.6 03/31/17 16:39 95 Status: improved Disposition: HOME, SELF-CARE Condition: Serious Scripts Lidocaine HCl 2% Viscous (Lidocaine HCl 2% Viscous) 100 Ml Solution 10 ML ORAL QID, #100 ML Prov: Anahy Guerrero 03/31/17 Ranitidine Hcl* (ZANTAC*) 150 Mg Tablet 150 MG ORAL TWICE A DAY for 10 Days, #20 TAB Prov: Anahy Guerrero 03/31/17 Patient Instructions: Gastritis, Adult Additional Instructions: Take medications as directed. Follow up with a Primary Care Provider within 3- days, even if your symptoms have resolved. --Please review list of primary care clinics, if you do not already have a primary care provider Return sooner to ED if new symptoms occur, or current symptoms become worse. Do not drink alcohol As this is damaging to the Liver. - Please note that this Emergency Department Report was dictated using [employer] account manager technology software, occasionally this can lead to erroneous entry secondary to interpretation by the dictation equipment. JOVANI RAMESH M.D. Mar 31, 2017 21:11
== END | disposition home or self-care (01) ==
LOC: EMR 17:13
DX: K29.70 Gastritis, unspecified, without bleeding (principal); F41.9 Anxiety disorder, unspecified; K74.60 Unspecified cirrhosis of liver; B19.20 Unspecified viral hepatitis C without hepatic coma; K21.9 Gastro-esophageal reflux disease without esophagitis
CPT/HCPCS: 36415; 80053; 82248; 83690; 85007; 85025; 96374; 96375; 99284; J2270; J2405; S0028

== ENCOUNTER 2017-05-07 11:04 | Emergency (ER) | payer OTHER ==
[~2017-05-07] VITALS: Ht 162.6 cm; Wt 79.8 kg
[~2017-05-07 11:04] MED LIST changes: -LIBRIUM10 MG ORAL; -LORazepam Inj 2mg/ml 1ml IV ONE; -Morphine Sulfate 4mg/ml Inj IVP ONE; -PEPCID20 MG ORAL
[2017-05-07] MEDS ORDERED: LORazepam Inj 2mg/ml 1ml IV ONE (11:30)
[2017-05-07 12:13] LABS: BASOPHILS % (AUTO) 0.9 % (0.0-2.0); EOSINOPHILS % (AUTO) 1.3 % (0.0-3.0); HEMATOCRIT 45.9 % (42.0-52.0); HEMOGLOBIN 16.2 G/DL (14.2-18.0); LYMPHOCYTES % (AUTO) 19.8 % (20.0-45.0); MEAN CORPUSCULAR VOLUME 91 FL (80-99); MONOCYTES % (AUTO) 5.6 % (1.0-10.0); NEUTROPHILS % (AUTO) 72.5 % (45.0-75.0); PLATELET COUNT 182 K/UL (150-450); RED BLOOD COUNT 5.04 M/UL (4.70-6.10); RED CELL DISTRIBUTION WIDTH 12.2 % (11.6-14.8); WHITE BLOOD COUNT 8.6 K/UL (4.8-10.8)
[2017-05-07 12:14] LABS: APPEARANCE,URINE CLEAR; BILIRUBIN, URINE NEGATIVE (NEGATIVE); GLUCOSE, URINE (UA) NEGATIVE (NEGATIVE); KETONES,URINE NEGATIVE (NEGATIVE); LEUKOCYTE ESTERASE ,URINE 1+ (NEGATIVE); NITRITE,URINE NEGATIVE (NEGATIVE); PH,URINE 6 (4.5-8.0); PROTEIN,URINE NEGATIVE (NEGATIVE); UROBILINOGEN,URINE 1 MG/DL (0.0-1.0)
[2017-05-07 12:18] LABS: COLOR,URINE YELLOW
[2017-05-07 12:22] LABS: INR 0.9 (0.9-1.1)
[2017-05-07 12:24] LABS: ANION GAP 10 mmol/L (5-15); BLOOD UREA NITROGEN 20 mg/dL (7-18); CALCIUM 8.3 MG/DL (8.5-10.1); CARBON DIOXIDE 27 MMOL/L (21-32); CHLORIDE 103 MMOL/L (98-107); CREATININE 0.8 MG/DL (0.55-1.30); POTASSIUM 3.7 MMOL/L (3.5-5.1); SODIUM 139 MMOL/L (136-145)
[2017-05-07 12:32] LABS: ALANINE AMINOTRANSFERASE 73 U/L (12-78); ALBUMIN 3.6 G/DL (3.4-5.0); ALBUMIN/GLOBULIN RATIO 1.1 (1.0-2.7); ALKALINE PHOSPHATASE 104 U/L (46-116); ASPARTATE AMINO TRANSFERASE 35 U/L (15-37); BILIRUBIN,DIRECT 0.2 MG/DL (0.0-0.3); BILIRUBIN,TOTAL 1.2 MG/DL (0.2-1.0)
[2017-05-07 13:06] VITALS: BP 127/76
--- NOTE | 2017-05-07 14:38 | Emergency Room Report ---
History of Present Illness General Chief Complaint: Alcohol Intoxication Source: Patient Present Illness HPI Patient presents with vomiting, shakes and alcohol withdrawal. Drinks every day , but recently has been vomiting. He gets the shakes if he stops. Has been through rehab once in the past but no know AA or have sponsor. No hematemesis, coffee grounds, melena or bloody stool. Last BM soft and believes normal color. Feels weak with standing. He also fell several weeks ago and hit his R head. No LOC, but has some continued pain there. Denies seizure. Has had seizure in past, not on meds for this. Patient has had negative CT in past (06/2016). Not suicidal. Allergies: Coded Allergies: No Known Allergies (Unverified , 07/23/16) Patient History Past Medical History: see triage record, old chart reviewed Social History: Reports: alcohol use; Denies: smoking, drug use Social History Narrative Reviewed Nursing Documentation: PMH: Agreed; PSxH: Agreed Nursing Documentation-PMH Hx Cardiac Problems: No - HEP C, ANEMIA, Jaw dislocation surgery. Hx Hypertension: No Hx Pacemaker: No Hx Asthma: No Hx COPD: No Hx Diabetes: No Hx Cancer: No Hx Gastrointestinal Problems: Yes - LIVER CIRRHOSIS,GASTRITIS Hx Dialysis: No History Of Psychiatric Problem: Yes - Anxiety, ETOH Abuse Hx Neurological Problems: No Hx Cerebrovascular Accident: No Hx Seizures: No Review of Systems All Other Systems: negative except mentioned in HPI Physical Exam Vital Signs Date Time Temp Pulse Resp B/P (MAP) Pulse Ox O2 Delivery O2 Flow Rate FiO2 05/07/17 11:11 98.1 111 21 134/87 96 Room Air 98.1 Sp02 EP Interpretation: reviewed, normal General Appearance: well appearing, no apparent distress, GCS 15 Head: normocephalic, other - tender R top of head parietal area, no hematoma or step offs Eyes: bilateral eye normal inspection, bilateral eye PERRL, bilateral eye EOMI ENT: moist mucus membranes Neck: supple Respiratory: lungs clear, normal breath sounds Cardiovascular #1: regular rate, rhythm Cardiovascular #2: 2+ radial (R) Gastrointestinal: normal inspection, normal bowel sounds, non tender, no mass, non-distended Musculoskeletal: back normal, gait/station normal, normal range of motion Neurologic: alert, oriented x3, supervisory lifeguard III-XII nml as tested, motor strength/tone normal, DTRs symmetric, sensory intact, cerebellar normal, normal gait, speech normal, other - some resting tremor when asked about it. Otherwise not tremor Psychiatric: mood/affect normal Skin: normal inspection, warm/dry Medical Decision Making Diagnostic Impression: Primary Impression: Alcohol withdrawal Qualified Codes: F10.239 - Alcohol dependence with withdrawal, unspecified Additional Impressions: Gastritis Qualified Codes: K29.20 - Alcoholic gastritis without bleeding Subacute head injury ER Course Patient presents with vomiting, epigastric pain and shakes. DDx: gastritis, GItis, pancreatitis, obstruction, UTI, post head trauma, anxiety amongst others. Evaluation with labs. Treatment with pepcid, zofran and ativan. Also will be given IV hydration. Consideration of CT, but non-focal neurologic at this time. Labs with normal WBC and H/H. CMP esentially normal (BUN 20, glu 155) Improved with treatment. Tolerating PO without difficulty. Discussed withdrawal and need for help for stopping EtOH. Discussed with patient and . Asked for more ativan. Given Librium. Patient stable for outpatient observation and treatment. Laboratory Tests Test 05/07/17 11:21 05/07/17 12:00 Urine Color Yellow Urine Appearance Clear Urine pH 6 (4.5-8.0) Urine Specific [place] 1.010 (1.005-1.035) Urine Protein Negative (NEGATIVE) Urine Glucose (UA) Negative (NEGATIVE) Urine Ketones Negative (NEGATIVE) Urine Occult Blood 1+ (NEGATIVE) H Urine Nitrite Negative (NEGATIVE) Urine Bilirubin Negative (NEGATIVE) Urine Urobilinogen 1 MG/DL (0.0-1.0) H Urine Leukocyte Esterase 1+ (NEGATIVE) H Urine RBC 0-2 /HPF (0 - 0) H Urine WBC 0-2 /HPF (0 - 0) Urine Squamous Epithelial Cells Occasional /LPF Urine Bacteria Occasional /HPF (NONE) Urine Opiates Screen Negative (NEGATIVE) Urine Barbiturates Screen Negative (NEGATIVE) Phencyclidine (PCP) Screen Negative (NEGATIVE) Urine Amphetamines Screen Negative (NEGATIVE) Urine Benzodiazepines Screen Negative (NEGATIVE) Urine Cocaine Screen Negative (NEGATIVE) Urine Marijuana (THC) Screen Negative (NEGATIVE) White Blood Count 8.6 K/UL (4.8-10.8) Red Blood Count 5.04 M/UL (4.70-6.10) Hemoglobin 16.2 G/DL (14.2-18.0) Hematocrit 45.9 % (42.0-52.0) Mean Corpuscular Volume 91 FL (80-99) Mean Corpuscular Hemoglobin 32.1 PG (27.0-31.0) H Mean Corpuscular Hemoglobin Concent 35.2 G/DL (32.0-36.0) Red Cell Distribution Width 12.2 % (11.6-14.8) Platelet Count 182 K/UL (150-450) Mean Platelet Volume 9.7 FL (6.5-10.1) Neutrophils (%) (Auto) 72.5 % (45.0-75.0) Lymphocytes (%) (Auto) 19.8 % (20.0-45.0) L Monocytes (%) (Auto) 5.6 % (1.0-10.0) Eosinophils (%) (Auto) 1.3 % (0.0-3.0) Basophils (%) (Auto) 0.9 % (0.0-2.0) Prothrombin Time 9.6 SEC (9.30-11.50) Prothrombin Time INR 0.9 (0.9-1.1) PTT 24 SEC (23-33) Sodium Level 139 MMOL/L (136-145) Potassium Level 3.7 MMOL/L (3.5-5.1) Chloride Level 103 MMOL/L (98-107) Carbon Dioxide Level 27 MMOL/L (21-32) Anion Gap 10 mmol/L (5-15) Blood Urea Nitrogen 20 mg/dL (7-18) H Creatinine 0.8 MG/DL (0.55-1.30) Estimate Glomerular Filtration Rate > 60 mL/min (>60) Glucose Level 155 MG/DL (74-106) H Calcium Level 8.3 MG/DL (8.5-10.1) L Total Bilirubin 1.2 MG/DL (0.2-1.0) H Direct Bilirubin 0.2 MG/DL (0.0-0.3) Aspartate Amino Transferase (AST) 35 U/L (15-37) Alanine Aminotransferase (ALT) 73 U/L (12-78) Alkaline Phosphatase 104 U/L (46-116) Total Protein 7.0 G/DL (6.4-8.2) Albumin 3.6 G/DL (3.4-5.0) Globulin 3.4 g/dL Albumin/Globulin Ratio 1.1 (1.0-2.7) Lipase 151 U/L (73-393) Serum Alcohol < 3 mg/dL Last Vital Signs Date Time Temp Pulse Resp B/P (MAP) Pulse Ox O2 Delivery O2 Flow Rate FiO2 05/07/17 16:06 98.1 85 17 128/78 99 Room Air 98.1 Status: improved Disposition: HOME, SELF-CARE Condition: Improved Scripts Chlordiazepoxide Hcl* (LIBRIUM*) 10 Mg Capsule 10 MG ORAL THREE TIMES A DAY PRN for withdrawal, #10 CAP 0 Refills Prov: Basil Hernandez M.D. 05/07/17 Ondansetron Odt* (ZOFRAN ODT*) 4 Mg Tab.rapdis 4 MG ORAL Q8H PRN for Nausea & Vomiting, #6 TAB 0 Refills Prov: Basil Hernandez M.D. 05/07/17 Famotidine (PEPCID) 20 Mg Tablet 20 MG ORAL DAILY, #20 TAB 0 Refills Prov: Basil Hernandez M.D. 05/07/17 Referrals: [facility],REFERRING (PCP) Basil Hernandez M.D. May 07, 2017 14:38
[2017-05-07] MEDS ORDERED: chlordiazePOXIDE 25mg Cap ORAL ONE (14:45)
[2017-05-07] MEDS ORDERED: LIBRIUM10 MG ORAL (14:49)
[2017-05-07] MEDS ORDERED: PEPCID20 MG ORAL (14:49)
[2017-05-07] MEDS ORDERED: ZOFRAN ODT4 MG ORAL (14:49)
[2017-05-07 15:06] VITALS: BP 128/78
[2017-05-07 16:06] VITALS: BP 128/78
== END 2017-05-07 16:11 | disposition home or self-care (01) ==
LOC: EMR 11:42
DX: F10.239 Alcohol dependence with withdrawal, unspecified (principal); K29.70 Gastritis, unspecified, without bleeding; S00.03XA Contusion of scalp, initial encounter; W19.XXXA Unspecified fall, initial encounter; Y92.9 Unspecified place or not applicable
CPT/HCPCS: 36415; 80053; 80307; 80329; 81003; 82248; 83690; 85025; 85610; 85730; 96361; 96374; 96375; 99284; J2405; S0028

== ENCOUNTER 2017-06-04 03:14 | Emergency (ER) | payer OTHER ==
[~2017-06-04] VITALS: Ht 162.6 cm; Wt 83.0 kg
[~2017-06-04 03:14] MED LIST changes: +LIBRIUM10 MG ORAL; +PEPCID20 MG ORAL
[2017-06-04 03:30] VITALS: BP 122/92
[2017-06-04] MEDS ORDERED: LORazepam Inj 2mg/ml 1ml IV ONE ×2 (03:45→05:00)
--- NOTE | 2017-06-04 03:48 | Emergency Room Report ---
History of Present Illness General Chief Complaint: Abdominal Pain Source: Patient, Medical Record Present Illness HPI Complaints of sensation of alcohol withdrawal Patient reports that he has been having tremulous feeling Denies any chest pain he does have some palpitation Denies any vomiting patient has had diarrhea Also reports sexual contact over the weekend And he feels burning with urination Denies any fevers He has had some mild chills denies any neck pain or photophobia Allergies: Coded Allergies: No Known Allergies (Unverified , 07/23/16) Patient History Past Medical History: see triage record Pertinent Family History: none Reviewed Nursing Documentation: PMH: Agreed; PSxH: Agreed Nursing Documentation-PMH Past Medical History: No History, Except For Hx Cardiac Problems: No - HEP C, Hep B, ANEMIA, Jaw dislocation surgery. Hx Hypertension: No Hx Pacemaker: No Hx Asthma: No Hx COPD: No Hx Diabetes: No Hx Cancer: No Hx Gastrointestinal Problems: Yes - LIVER CIRRHOSIS,GASTRITIS Hx Dialysis: No Hx Neurological Problems: No Hx Cerebrovascular Accident: No Hx Seizures: No Review of Systems All Other Systems: negative except mentioned in HPI Physical Exam Vital Signs Date Time Temp Pulse Resp B/P (MAP) Pulse Ox O2 Delivery O2 Flow Rate FiO2 06/04/17 03:15 98.2 86 16 150/94 97 Room Air 98.2 Sp02 EP Interpretation: reviewed, normal General Appearance: well appearing, no apparent distress Head: normocephalic, atraumatic Eyes: bilateral eye PERRL, bilateral eye EOMI ENT: hearing grossly normal, normal pharynx, TMs + canals normal, uvula midline Neck: full range of motion, supple, no meningismus, no bony tend Respiratory: lungs clear, normal breath sounds, no rhonchi, no respiratory distress, no retraction, no accessory muscle use Cardiovascular #1: normal peripheral pulses, regular rate, rhythm, no edema, no gallop, no JVD, no murmur Gastrointestinal: normal bowel sounds, non tender, soft, no mass, no organomegaly, non-distended, no guarding, no hernia, no pulsatile mass, no rebound Genitourinary: no CVA tenderness Musculoskeletal: normal inspection Neurologic: oriented x3, responsive, grinder set up operator jig III-XII nml as tested, motor strength/ tone normal, sensory intact Psychiatric: mood/affect normal Skin: normal color, no rash, warm/dry, palpation normal Lymphatic: normal inspection, no adenopathy Medical Decision Making Diagnostic Impression: Primary Impression: Alcohol abuse ER Course Multiple differential considered Including but not limited to electrolyte pathology, on-call withdrawal symptoms Patient had extensive work and hydration initiated Blood work is at baseline level at this time Patient feels significantly improved He was treated for possible STD and requires close outpatient follow-up and understands that this is not testing for such things as HIV and he requires close follow-up Labs Test 06/04/17 04:25 06/04/17 05:10 White Blood Count 6.5 K/UL (4.8-10.8) Red Blood Count 5.58 M/UL (4.70-6.10) Hemoglobin 17.7 G/DL (14.2-18.0) Hematocrit 50.7 % (42.0-52.0) Mean Corpuscular Volume 91 FL (80-99) Mean Corpuscular Hemoglobin 31.7 PG (27.0-31.0) Mean Corpuscular Hemoglobin Concent 34.9 G/DL (32.0-36.0) Red Cell Distribution Width 11.7 % (11.6-14.8) Platelet Count 117 K/UL (150-450) Mean Platelet Volume 9.1 FL (6.5-10.1) Neutrophils (%) (Auto) 57.0 % (45.0-75.0) Lymphocytes (%) (Auto) 31.7 % (20.0-45.0) Monocytes (%) (Auto) 7.5 % (1.0-10.0) Eosinophils (%) (Auto) 2.7 % (0.0-3.0) Basophils (%) (Auto) 1.1 % (0.0-2.0) Sodium Level 140 MMOL/L (136-145) Potassium Level 3.7 MMOL/L (3.5-5.1) Chloride Level 103 MMOL/L (98-107) Carbon Dioxide Level 26 MMOL/L (21-32) Anion Gap 11 mmol/L (5-15) Blood Urea Nitrogen 15 mg/dL (7-18) Creatinine 0.8 MG/DL (0.55-1.30) Estimat Glomerular Filtration Rate > 60 mL/min (>60) Glucose Level 93 MG/DL (74-106) Calcium Level 8.3 MG/DL (8.5-10.1) Total Bilirubin 1.5 MG/DL (0.2-1.0) Direct Bilirubin 0.4 MG/DL (0.0-0.3) Aspartate Amino Transf (AST/SGOT) 44 U/L (15-37) Alanine Aminotransferase (ALT/SGPT) 61 U/L (12-78) Alkaline Phosphatase 101 U/L (46-116) Total Protein 7.6 G/DL (6.4-8.2) Albumin 4.1 G/DL (3.4-5.0) Globulin 3.5 g/dL Albumin/Globulin Ratio 1.2 (1.0-2.7) Lipase 344 U/L (73-393) Last Vital Signs Date Time Temp Pulse Resp B/P (MAP) Pulse Ox O2 Delivery O2 Flow Rate FiO2 06/04/17 03:15 98.2 86 16 150/94 97 Room Air 98.2 Status: improved Disposition: HOME, SELF-CARE Condition: Improved Scripts Doxycycline Monohydrate* (DOXYCYCLINE MONOHYDRATE*) 100 Mg Capsule 100 MG ORAL Q12H, #14 CAP 0 Refills Prov: Toshia Dang DO 06/04/17 Lorazepam* (ATIVAN*) 1 Mg Tablet 1 MG ORAL BEDTIME, #3 TAB Prov: Toshia Dang DO 06/04/17 Famotidine (PEPCID) 40 Mg Tablet 40 MG PO DAILY, #7 TAB 0 Refills Prov: Toshia Dang DO 06/04/17 Ondansetron Odt* (ZOFRAN ODT*) 4 Mg Tab.rapdis 4 MG ORAL Q6H PRN for Nausea & Vomiting, #12 TAB 0 Refills Prov: Toshia Dang DO 06/04/17 Additional Instructions: Patient is provided with the discharge instructions notified to follow up with primary doctor in the next 2-3 days otherwise return to the er with any worsening symptoms. Please note that this report is being documented using [employer] technology. This can lead to erroneous entry secondary to incorrect interpretation by the dictating instrument. Toshia Dang DO Jun 04, 2017 03:48
[2017-06-04] MEDS ORDERED: Azithromycin 250mg tab ORAL ONE (04:00)
[2017-06-04] MEDS ORDERED: Lidocaine 1% MPF 10mg/ml 5ml INJ ONE (04:00)
[2017-06-04 04:38] LABS: BASOPHILS % (AUTO) 1.1 % (0.0-2.0); EOSINOPHILS % (AUTO) 2.7 % (0.0-3.0); HEMATOCRIT 50.7 % (42.0-52.0); HEMOGLOBIN 17.7 G/DL (14.2-18.0); LYMPHOCYTES % (AUTO) 31.7 % (20.0-45.0); MEAN CORPUSCULAR VOLUME 91 FL (80-99); MONOCYTES % (AUTO) 7.5 % (1.0-10.0); PLATELET COUNT 117 K/UL (150-450); RED BLOOD COUNT 5.58 M/UL (4.70-6.10); RED CELL DISTRIBUTION WIDTH 11.7 % (11.6-14.8); WHITE BLOOD COUNT 6.5 K/UL (4.8-10.8)
[2017-06-04 05:29] VITALS: BP 120/89
[2017-06-04 05:29] LABS: ANION GAP 11 mmol/L (5-15); BLOOD UREA NITROGEN 15 mg/dL (7-18); CALCIUM 8.3 MG/DL (8.5-10.1); CARBON DIOXIDE 26 MMOL/L (21-32); CHLORIDE 103 MMOL/L (98-107); CREATININE 0.8 MG/DL (0.55-1.30); POTASSIUM 3.7 MMOL/L (3.5-5.1); SODIUM 140 MMOL/L (136-145)
[2017-06-04 05:40] LABS: ALANINE AMINOTRANSFERASE 61 U/L (12-78); ALBUMIN 4.1 G/DL (3.4-5.0); ALBUMIN/GLOBULIN RATIO 1.2 (1.0-2.7); ALKALINE PHOSPHATASE 101 U/L (46-116); ASPARTATE AMINO TRANSFERASE 44 U/L (15-37); BILIRUBIN,TOTAL 1.5 MG/DL (0.2-1.0)
[2017-06-04] MEDS ORDERED: PEPCID40 MG PO (05:47)
[2017-06-04] MEDS ORDERED: ATIVAN1 MG ORAL (05:47)
[2017-06-04] MEDS ORDERED: ZOFRAN ODT4 MG ORAL (05:47)
[2017-06-04] MEDS ORDERED: DOXYCYCLINE MO100 MG ORAL (05:51)
[2017-06-04 05:56] LABS: BILIRUBIN,DIRECT 0.4 MG/DL (0.0-0.3)
[2017-06-04 05:58] VITALS: BP 120/89
== END 2017-06-04 05:59 | disposition home or self-care (01) ==
LOC: EMR 03:45
DX: F10.10 Alcohol abuse, uncomplicated (principal); B19.20 Unspecified viral hepatitis C without hepatic coma; K74.60 Unspecified cirrhosis of liver; Z87.19 Personal history of other diseases of the digestive system
CPT/HCPCS: 36415; 80053; 82248; 83690; 85025; 96372; 96374; 96375; 99284; J0696; J2405; Q0144

== ENCOUNTER 2017-08-08 04:15 | Emergency (ER) | payer OTHER ==
[~2017-08-08] VITALS: Ht 162.6 cm; Wt 79.4 kg
[~2017-08-08 04:15] MED LIST changes: +ATIVAN1 MG ORAL; +DOXYCYCLINE MO100 MG ORAL; +PEPCID40 MG PO
[2017-08-08] MEDS ORDERED: Thiamine HCl 100 MG in D5W 55 ML IVPB ONE (04:45)
[2017-08-08] MEDS ORDERED: LORazepam Inj 2mg/ml 1ml IV ONE (04:45)
--- NOTE | 2017-08-08 04:46 | Emergency Room Report ---
History of Present Illness General Chief Complaint: Abdominal Pain Source: Patient, Medical Record Present Illness HPI Patient is a 31-year-old male who presented after increased epigastric pain and vomiting. Patient reported having gradual onset of symptoms over the past 3 days. He reports having increased anxiety and tremulousness. Patient had prior history of alcohol abuse. Patient states his last drink was approximately 3 days ago. The patient reports having the epigastric pain which did not radiate. He denied any hematemesis or bloody stools. The patient states he drinks alcohol regularly has prior history of cirrhosis. Allergies: Coded Allergies: No Known Allergies (Unverified , 07/23/16) Patient History Past Medical History: see triage record Reviewed Nursing Documentation: PMH: Agreed; PSxH: Agreed Nursing Documentation-PMH Past Medical History: No History, Except For Hx Cardiac Problems: No - HEP C, Hep B, Anemia, Jaw dislocation surgery Hx Hypertension: No Hx Pacemaker: No Hx Asthma: No Hx COPD: No Hx Diabetes: No Hx Cancer: No Hx Gastrointestinal Problems: Yes - Liver Cirrhosis, Gastritis Hx Dialysis: No History Of Psychiatric Problem: Yes - Anxiety Hx Neurological Problems: No Hx Cerebrovascular Accident: No Hx Seizures: No Review of Systems All Other Systems: negative except mentioned in HPI Physical Exam Vital Signs Date Time Temp Pulse Resp B/P (MAP) Pulse Ox O2 Delivery O2 Flow Rate FiO2 08/08/17 04:19 97.2 99 16 135/64 97 Room Air 97.2 Sp02 EP Interpretation: reviewed, normal General Appearance: normal inspection, well appearing, no apparent distress, alert, GCS 15 Head: atraumatic ENT: normal ENT inspection, hearing grossly normal, normal voice Neck: normal inspection, full range of motion, supple, no bony tend Respiratory: normal inspection, lungs clear, normal breath sounds, no respiratory distress, no retraction, no wheezing Cardiovascular #1: regular rate, rhythm, no edema Gastrointestinal: normal inspection, normal bowel sounds, non tender, soft, no guarding, no hernia Genitourinary: no CVA tenderness Musculoskeletal: normal inspection, back normal, normal range of motion Neurologic: normal inspection, alert, oriented x3, responsive, tea and spice supervisor III-XII nml as tested, speech normal Psychiatric: normal inspection, judgement/insight normal, mood/affect normal Skin: normal inspection, normal color, no rash Medical Decision Making Diagnostic Impression: Primary Impression: Alcohol withdrawal Additional Impression: Gastritis ER Course Patient presented for abdominal pain. Differential diagnoses included ischemic bowel, appendicitis, perforated viscus, abdominal aortic aneurysm, inferior myocardial infarction, viral gastroenteritisThe laboratory testing was unremarkable. Patient showed no evidence of pancreatitis. The patient appears to have mild alcohol withdrawal. Because of complexity of patient's case laboratory testing and imaging studies were ordered. The patient was given IV fluids as well as IV Ativan. The patient is advised to follow up with primary care doctor in 1-2 days. Patient is advised to return if any worsening condition or if any changes in status that are concerning. This report is dictated with [employer] web content editor software which may occasionally lead to discrepancies related to use of this software. Labs Test 08/08/17 05:15 White Blood Count 6.0 K/UL (4.8-10.8) Red Blood Count 4.78 M/UL (4.70-6.10) Hemoglobin 14.9 G/DL (14.2-18.0) Hematocrit 43.4 % (42.0-52.0) Mean Corpuscular Volume 91 FL (80-99) Mean Corpuscular Hemoglobin 31.1 PG (27.0-31.0) Mean Corpuscular Hemoglobin Concent 34.3 G/DL (32.0-36.0) Red Cell Distribution Width 12.5 % (11.6-14.8) Platelet Count 140 K/UL (150-450) Mean Platelet Volume 9.1 FL (6.5-10.1) Neutrophils (%) (Auto) 52.6 % (45.0-75.0) Lymphocytes (%) (Auto) 33.5 % (20.0-45.0) Monocytes (%) (Auto) 9.2 % (1.0-10.0) Eosinophils (%) (Auto) 3.5 % (0.0-3.0) Basophils (%) (Auto) 1.2 % (0.0-2.0) Sodium Level 137 MMOL/L (136-145) Potassium Level 3.5 MMOL/L (3.5-5.1) Chloride Level 103 MMOL/L (98-107) Carbon Dioxide Level 27 MMOL/L (21-32) Anion Gap 8 mmol/L (5-15) Blood Urea Nitrogen 15 mg/dL (7-18) Creatinine 0.7 MG/DL (0.55-1.30) Estimat Glomerular Filtration Rate > 60 mL/min (>60) Glucose Level 98 MG/DL (74-106) Calcium Level 8.5 MG/DL (8.5-10.1) Total Bilirubin 1.3 MG/DL (0.2-1.0) Direct Bilirubin 0.3 MG/DL (0.0-0.3) Aspartate Amino Transf (AST/SGOT) 75 U/L (15-37) Alanine Aminotransferase (ALT/SGPT) 87 U/L (12-78) Alkaline Phosphatase 95 U/L (46-116) Total Protein 7.1 G/DL (6.4-8.2) Albumin 3.7 G/DL (3.4-5.0) Globulin 3.4 g/dL Albumin/Globulin Ratio 1.1 (1.0-2.7) Lipase 293 U/L (73-393) Last Vital Signs Date Time Temp Pulse Resp B/P (MAP) Pulse Ox O2 Delivery O2 Flow Rate FiO2 08/08/17 04:19 97.2 99 16 135/64 97 Room Air 97.2 Status: improved Disposition: HOME, SELF-CARE Condition: Stable Scripts Lorazepam* (ATIVAN*) 1 Mg Tablet 1 MG ORAL THREE TIMES A DAY, #14 TAB Prov: Anish Vann MD 08/08/17 Omeprazole Magnesium (PRILOSEC OTC) 20 Mg Tablet. 20 MG ORAL DAILY, #30 TAB Prov: Anish Vann MD 08/08/17 Anish Vann MD Aug 08, 2017 04:46
[2017-08-08 04:55] VITALS: BP 135/64
[2017-08-08 05:33] LABS: BASOPHILS % (AUTO) 1.2 % (0.0-2.0); EOSINOPHILS % (AUTO) 3.5 % (0.0-3.0); HEMATOCRIT 43.4 % (42.0-52.0); HEMOGLOBIN 14.9 G/DL (14.2-18.0); LYMPHOCYTES % (AUTO) 33.5 % (20.0-45.0); MEAN CORPUSCULAR VOLUME 91 FL (80-99); MONOCYTES % (AUTO) 9.2 % (1.0-10.0); NEUTROPHILS % (AUTO) 52.6 % (45.0-75.0); PLATELET COUNT 140 K/UL (150-450); RED BLOOD COUNT 4.78 M/UL (4.70-6.10); RED CELL DISTRIBUTION WIDTH 12.5 % (11.6-14.8)
[2017-08-08 05:47] LABS: ANION GAP 8 mmol/L (5-15); BLOOD UREA NITROGEN 15 mg/dL (7-18); CALCIUM 8.5 MG/DL (8.5-10.1); CARBON DIOXIDE 27 MMOL/L (21-32); CHLORIDE 103 MMOL/L (98-107); CREATININE 0.7 MG/DL (0.55-1.30); POTASSIUM 3.5 MMOL/L (3.5-5.1); SODIUM 137 MMOL/L (136-145)
[2017-08-08 05:58] LABS: ALANINE AMINOTRANSFERASE 87 U/L (12-78); ALBUMIN 3.7 G/DL (3.4-5.0); ALBUMIN/GLOBULIN RATIO 1.1 (1.0-2.7); ALKALINE PHOSPHATASE 95 U/L (46-116); ASPARTATE AMINO TRANSFERASE 75 U/L (15-37); BILIRUBIN,TOTAL 1.3 MG/DL (0.2-1.0)
[2017-08-08] MEDS ORDERED: PRILOSEC OTC20 MG ORAL (06:02)
[2017-08-08] MEDS ORDERED: ATIVAN1 MG ORAL (06:02)
[2017-08-08 06:22] LABS: BILIRUBIN,DIRECT 0.3 MG/DL (0.0-0.3)
[2017-08-08 09:58] VITALS: BP 131/72
== END 2017-08-08 10:00 | disposition home or self-care (01) ==
LOC: EMR 04:47
DX: F10.239 Alcohol dependence with withdrawal, unspecified (principal); K29.70 Gastritis, unspecified, without bleeding; F41.9 Anxiety disorder, unspecified
CPT/HCPCS: 36415; 80053; 82248; 83690; 85025; 86850; 86900; 86901; 96361; 96365; 96375; 99284; J2405; S0028; 96360

== ENCOUNTER 2017-12-25 05:29 | Emergency (ER) | payer OTHER ==
[~2017-12-25] VITALS: Ht 162.6 cm; Wt 82.1 kg
[2017-12-25 05:38] VITALS: BP 117/81
[2017-12-25] MEDS ORDERED: chlordiazePOXIDE 25mg Cap ORAL ONE (05:45)
[2017-12-25] MEDS ORDERED: LORazepam Inj 2mg/ml 1ml IM ONE (05:45)
[2017-12-25] MEDS ORDERED: LIBRIUM25 MG ORAL (05:49)
--- NOTE | 2017-12-25 05:50 | Emergency Room Report ---
History of Present Illness General Chief Complaint: Alcohol Intoxication Source: Patient, Medical Record Present Illness HPI This is a 32-year-old male with a history of alcohol abuse. He said he normally drinks a pint a day. He walked in with chief complaint of alcohol withdrawal. Last drink was 22 hours ago. He felt shaky. No fever chills but no nausea no vomiting. He was at a clinic yesterday and they told him to go to the hospital. Before that he was at [facility] and before that he was at [facility]. Has nausea and vomiting. No diarrhea. Denies any suicidal thought homicidal thought. Better with drinking. Worse off of it. Allergies: Coded Allergies: No Known Allergies (Unverified , 07/23/16) Patient History Past Medical History: see triage record, old chart reviewed Past Surgical History: other Pertinent Family History: none Social History: Reports: alcohol use Immunizations: other Reviewed Nursing Documentation: PMH: Agreed; PSxH: Agreed Nursing Documentation-PMH Hx Cardiac Problems: No - HEP C, Hep B, Anemia, Jaw dislocation surgery Hx Hypertension: No Hx Pacemaker: No Hx Asthma: No Hx COPD: No Hx Diabetes: No Hx Cancer: No Hx Gastrointestinal Problems: Yes - Liver Cirrhosis, Gastritis Hx Dialysis: No Hx Neurological Problems: No Hx Cerebrovascular Accident: No Hx Seizures: No Review of Systems Eye: Denies: eye pain, blurred vision ENT: Denies: ear pain, nose congestion, throat swelling Respiratory: Denies: cough, shortness of breath Cardiovascular: Denies: chest pain, palpitations Gastrointestinal: Denies: abdominal pain, diarrhea, nausea, vomiting Musculoskeletal: Denies: back pain, joint pain Skin: Denies: rash Neurological: Denies: headache, numbness Endocrine: Denies: increased thirst, increased urine Hematologic/Lymphatic: Denies: easy bruising All Other Systems: negative except mentioned in HPI Physical Exam Vital Signs Date Time Temp Pulse Resp B/P (MAP) Pulse Ox O2 Delivery O2 Flow Rate FiO2 12/25/17 05:31 97.3 124 16 117/81 97 Room Air vitals with tachycardia Sp02 EP Interpretation: reviewed, normal General Appearance: well appearing, no apparent distress, alert, other - Strong smell of alcohol beverage on breath Head: normocephalic, atraumatic Eyes: bilateral eye PERRL, bilateral eye EOMI ENT: hearing grossly normal, normal pharynx Neck: full range of motion, supple, no meningismus Respiratory: chest non-tender, lungs clear, normal breath sounds Cardiovascular #1: regular rate, rhythm, no murmur, tachycardia - Heart rate 115 bpm Gastrointestinal: normal bowel sounds, non tender, no mass, no organomegaly, no bruit, non-distended Musculoskeletal: back normal, gait/station normal, normal range of motion Neurologic: alert, oriented x3, other - tremulous Psychiatric: mood/affect normal Skin: warm/dry Medical Decision Making Diagnostic Impression: Primary Impression: Alcohol withdrawal Qualified Codes: F10.230 - Alcohol dependence with withdrawal, uncomplicated ER Course Patient with alcohol withdrawal. Better after Ativan and Librium. We'll discharge home with referral for rehabilitation. I will put him on Librium also. No evidence of suicidal thoughts homicidal thought. No criteria for 5150. Last Vital Signs Date Time Temp Pulse Resp B/P (MAP) Pulse Ox O2 Delivery O2 Flow Rate FiO2 12/25/17 05:31 97.3 124 16 117/81 97 Room Air Status: improved Disposition: HOME, SELF-CARE Condition: Stable Scripts Chlordiazepoxide (Chlordiazepoxide HCl) 25 Mg Capsule 25 MG ORAL THREE TIMES A DAY, #15 CAP 0 Refills Prov: Hoang Blair MD 12/25/17 Patient Instructions: Alcohol Withdrawal Additional Instructions: Follow-up with rehabilitation in 2-3 days. Return if symptom worsen. Stop drinking alcohol. Follow-up with your doctor in 7 days. Hoang Blair MD Dec 25, 2017 05:50
[2017-12-25 06:26] VITALS: BP 123/83
[2017-12-25 06:27] VITALS: BP 123/83
== END 2017-12-25 06:31 | disposition home or self-care (01) ==
LOC: EMR 05:46
DX: F10.230 Alcohol dependence with withdrawal, uncomplicated (principal); R11.2 Nausea with vomiting, unspecified; R00.0 Tachycardia, unspecified
CPT/HCPCS: 96372; 99283

== ENCOUNTER 2018-01-12 20:11 | Emergency (ER) | payer OTHER ==
[~2018-01-12] VITALS: Ht 162.6 cm; Wt 63.5 kg
[2018-01-12 20:11] VITALS: BP 104/65
[2018-01-12] MEDS: Ketorolac 60mg Inj IM ONE ×2 (20:35→21:32)
[2018-01-12] MEDS ORDERED: IBUPROFEN600 MG ORAL (21:18)
--- NOTE | 2018-01-12 21:19 | Emergency Room Report ---
History of Present Illness General Chief Complaint: Lower Back Pain or Injury Source: Patient Present Illness HPI This is a 32-year-old male with no past medical history. He presents with chief complaint of low back pain. Onset for last 2 weeks. No trauma. No fever chills but no unconscious or bowel urine. No complaint. He denies any drug abuse. Nothing made it better. Worse with movement. Pain is mostly in the right side. Pain is 8 out of 10. No radiation. Allergies: Coded Allergies: No Known Allergies (Unverified , 01/12/18) Patient History Past Medical History: none, see triage record, old chart reviewed Past Surgical History: none Pertinent Family History: none Social History: Denies: smoking Immunizations: other Reviewed Nursing Documentation: PMH: Agreed; PSxH: Agreed Nursing Documentation-PMH Past Medical History: No History, Except For Hx Cardiac Problems: No - hep c; cirrhosis Review of Systems Eye: Denies: eye pain, blurred vision ENT: Denies: ear pain, nose congestion, throat swelling Respiratory: Denies: cough, shortness of breath Cardiovascular: Denies: chest pain, palpitations Gastrointestinal: Denies: abdominal pain, diarrhea, nausea, vomiting Musculoskeletal: Reports: back pain; Denies: joint pain Skin: Denies: rash Neurological: Denies: headache, numbness Endocrine: Denies: increased thirst, increased urine Hematologic/Lymphatic: Denies: easy bruising All Other Systems: negative except mentioned in HPI Physical Exam Vital Signs Date Time Temp Pulse Resp B/P (MAP) Pulse Ox O2 Delivery O2 Flow Rate FiO2 01/12/18 20:11 97.9 111 18 104/65 96 Room Air vitals with tachycardia Sp02 EP Interpretation: reviewed, normal General Appearance: well appearing, no apparent distress, alert, other - Appear to be Under The influence Head: normocephalic, atraumatic Eyes: bilateral eye PERRL, bilateral eye EOMI ENT: hearing grossly normal, normal pharynx Neck: full range of motion, supple, no meningismus Respiratory: chest non-tender, lungs clear, normal breath sounds Cardiovascular #1: regular rate, rhythm, no murmur Gastrointestinal: normal bowel sounds, non tender, no mass, no organomegaly, no bruit, non-distended Musculoskeletal: back normal - Tenderness to the right lower lumbar paraspinous muscle, gait/station normal, normal range of motion Neurologic: alert, oriented x3 Psychiatric: mood/affect normal Skin: warm/dry Medical Decision Making Diagnostic Impression: Primary Impression: Low back pain Qualified Codes: M54.5 - Low back pain ER Course Patient with lower back pain. No evidence of cauda equina syndrome, spinal epidural abscess or neoplastic process. Other X-Ray Diagnostic Results Other X-Ray Diagnostic Results : X-Ray ordered: Lumbar x-rays # of Views/Limited Vs Complete: 3 View Indication: Pain EP Interpretation: Yes Interpretation: no dislocation, no soft tissue swelling, no fractures Impression: No acute disease Electronically Signed by: Hoang Blair MD Last Vital Signs Date Time Temp Pulse Resp B/P (MAP) Pulse Ox O2 Delivery O2 Flow Rate FiO2 01/12/18 20:11 97.9 78 18 104/65 96 Room Air Status: improved Disposition: HOME, SELF-CARE Condition: Stable Scripts Ibuprofen* (MOTRIN*) 600 Mg Tablet 600 MG ORAL THREE TIMES A DAY, #30 TAB 0 Refills Prov: Hoang Blair MD 01/12/18 Patient Instructions: Back Pain, Adult Additional Instructions: Follow-up with your doctor in 7 days. Return if symptom worsen. Hoang Blair MD Jan 12, 2018 21:19
[2018-01-12 21:48] VITALS: BP 104/65
--- NOTE | 2018-01-13 10:29 | Diagnostic Imaging Report ---
Indication: Trauma, pain Technique: 3 views of the lumbar spine Comparison: None Findings: Bony alignment is normal. Vertebral body heights are preserved. The disc spaces are preserved. The surrounding soft tissues are unremarkable. Probable small bone island seen in the left iliac bone Impression: No acute process
== END 2018-01-12 21:45 | disposition home or self-care (01) ==
LOC: EDBD 20:11 → EMR 20:55 → MERGE 20:55 → EMR 21:45
DX: M54.5 Low back pain (principal)
CPT/HCPCS: 72020; 96372; 99283

== ENCOUNTER 2018-05-14 02:01 | Emergency (ER) | payer OTHER ==
[~2018-05-14] VITALS: Ht 175.3 cm; Wt 74.8 kg
[~2018-05-14 02:01] MED LIST changes: +NKM; +PROTONIX40 MG ORAL
[2018-05-14] MEDS ORDERED: Pantoprazole Inj IVP ONE (02:15)
[2018-05-14 02:42] VITALS: BP 123/75
--- NOTE | 2018-05-14 02:43 | NUR ---
ED Nurse Note: ETOH Pt picked up from a [employer].
[2018-05-14 02:49] LABS: BASOPHILS % (AUTO) 1.4 % (0.0-2.0); EOSINOPHILS % (AUTO) 0.8 % (0.0-3.0); HEMATOCRIT 47.5 % (42.0-52.0); HEMOGLOBIN 15.9 G/DL (14.2-18.0); MEAN CORPUSCULAR VOLUME 89 FL (80-99); MONOCYTES % (AUTO) 10.3 % (1.0-10.0); NEUTROPHILS % (AUTO) 62.4 % (45.0-75.0); PLATELET COUNT 147 K/UL (150-450); RED BLOOD COUNT 5.33 M/UL (4.70-6.10); RED CELL DISTRIBUTION WIDTH 15.4 % (11.6-14.8); WHITE BLOOD COUNT 6.6 K/UL (4.8-10.8)
[2018-05-14 02:56] LABS: ANION GAP 11 mmol/L (5-15); BLOOD UREA NITROGEN 3 mg/dL (7-18); CARBON DIOXIDE 30 MMOL/L (21-32); CHLORIDE 105 MMOL/L (98-107); CREATININE 0.7 MG/DL (0.55-1.30); POTASSIUM 5.2 MMOL/L (3.5-5.1); SODIUM 146 MMOL/L (136-145)
[2018-05-14 03:01] LABS: ALANINE AMINOTRANSFERASE 236 U/L (12-78); ALBUMIN 3.9 G/DL (3.4-5.0); ALBUMIN/GLOBULIN RATIO 0.9 (1.0-2.7); ALKALINE PHOSPHATASE 151 U/L (46-116); ASPARTATE AMINO TRANSFERASE 341 U/L (15-37); BILIRUBIN,TOTAL 0.6 MG/DL (0.2-1.0)
--- NOTE | 2018-05-14 03:20 | Emergency Room Report ---
History of Present Illness General Chief Complaint: Alcohol Intoxication Source: Patient, Medical Record, EMS Present Illness HPI This is a 32-year-old male who is an alcoholic. He presents with chief complaint of alcohol intoxication and vomiting blood. His been on and off for last 3 days. He was at [facility] couple days ago for the same. He said he had blood work done and discharge home with Ativan. He was at a [employer] station when he called 911. Said he has been drinking. Denies suicidal thoughts or homicidal thought. He's been here several time for the same thing. He said he noticed specks of blood in his vomit. Also with epigastric pain. Pain is 8 out of 10. Nothing made it better. Nothing made it worse. No other complaint. Allergies: Coded Allergies: No Known Allergies (Unverified , 07/23/16) Patient History Past Medical History: see triage record, old chart reviewed Past Surgical History: none Pertinent Family History: none Social History: Reports: alcohol use Immunizations: other Reviewed Nursing Documentation: PMH: Agreed; PSxH: Agreed Nursing Documentation-PMH Hx Cardiac Problems: No - HEP C, Hep B, Anemia, Jaw dislocation surgery Hx Hypertension: Yes Hx Pacemaker: No Hx Asthma: No Hx COPD: No Hx Diabetes: Yes Hx Cancer: No Hx Gastrointestinal Problems: Yes - Liver Cirrhosis, Gastritis Hx Dialysis: No Hx Neurological Problems: No Hx Cerebrovascular Accident: No Hx Seizures: Yes Review of Systems Eye: Denies: eye pain, blurred vision ENT: Denies: ear pain, nose congestion, throat swelling Respiratory: Denies: cough, shortness of breath Cardiovascular: Denies: chest pain, palpitations Gastrointestinal: Reports: abdominal pain, nausea, vomiting; Denies: diarrhea Musculoskeletal: Denies: back pain, joint pain Skin: Denies: rash Neurological: Denies: headache, numbness Endocrine: Denies: increased thirst, increased urine Hematologic/Lymphatic: Denies: easy bruising All Other Systems: negative except mentioned in HPI Physical Exam Vital Signs Date Time Temp Pulse Resp B/P (MAP) Pulse Ox O2 Delivery O2 Flow Rate FiO2 05/14/18 01:58 98.2 115 16 123/75 98 Room Air vitals with tachycardia Sp02 EP Interpretation: reviewed, normal General Appearance: well appearing, no apparent distress, alert, other - Intoxicated Head: normocephalic, atraumatic Eyes: bilateral eye PERRL, bilateral eye EOMI ENT: hearing grossly normal, normal pharynx Neck: full range of motion, supple, no meningismus Respiratory: chest non-tender, lungs clear, normal breath sounds Cardiovascular #1: regular rate, rhythm, no murmur Gastrointestinal: normal bowel sounds, no mass, no organomegaly, no bruit, non- distended, tenderness - Epigastric Musculoskeletal: back normal, gait/station normal, normal range of motion Psychiatric: mood/affect normal Skin: warm/dry Medical Decision Making Diagnostic Impression: Primary Impression: Acute alcoholic intoxication Qualified Codes: F10.920 - Alcohol use, unspecified with intoxication, uncomplicated Additional Impressions: Gastritis Qualified Codes: K29.20 - Alcoholic gastritis without bleeding Alcoholic hepatitis without ascites ER Course Patient with alcohol intoxication and alcoholic gastritis and hepatitis. Sleeping comfortably. No longer have any vomiting. Not suicidal homicidal. We 'll discharge home. Last Vital Signs Date Time Temp Pulse Resp B/P (MAP) Pulse Ox O2 Delivery O2 Flow Rate FiO2 05/14/18 02:42 115 16 Room Air 05/14/18 02:42 98.2 123/75 98 Status: improved Disposition: HOME, SELF-CARE Condition: Stable [facility]errals: [facility] (PCP) Patient Instructions: Alcohol Intoxication, [id number], Alcoholic Liver Disease, [id number] Additional Instructions: Abstain from alcohol. Go to rehab. See your doctor within a week. Return if symptoms worsen. Hoang Blair MD May 14, 2018 03:20
[2018-05-14] MEDS ORDERED: PRILOSEC OTC20 MG ORAL (04:09)
--- NOTE | 2018-05-14 04:12 | NUR ---
ED Nurse Note: pt is asleep and resting pt is aox4, pt vss.
[2018-05-14 05:15] VITALS: BP 125/74
--- NOTE | 2018-05-14 05:15 | NUR ---
ER DISCHARGE NOTE: Patient is cleared to be discharged per ERMD, pt is aox4, on room air, with stable vital signs. pt was given dc instructions, pt was able to verbalize understanding, pt id band and iv site removed without complications. pt is able to ambulate with steady gait. pt took all belongings.
--- NOTE | 2018-05-14 05:35 | NUR ---
Note kelle in EDM - 05/14/18 at 0535 by BERNARDO ER DISCHARGE NOTE: Patient is cleared to be discharged per ERMD, pt is aox4, on room air, with stable vital signs. pt was given dc instructions, pt was able to verbalize understanding, pt id band and iv site removed without complications. pt is able to ambulate with steady gait. pt took all belongings.
[2018-05-15] MEDS ORDERED: LIBRIUM25 MG ORAL (23:40)
== END 2018-05-14 05:15 | disposition home or self-care (01) ==
LOC: EDBD 02:01 → EMR 03:14
DX: F10.129 Alcohol abuse with intoxication, unspecified (principal); K29.70 Gastritis, unspecified, without bleeding; K70.10 Alcoholic hepatitis without ascites; I10 Essential (primary) hypertension
CPT/HCPCS: 36415; 80053; 85025; 96374; 96375; 99284; C9113; J2405

== ENCOUNTER 2018-05-15 23:03 | Emergency (ER) | payer OTHER ==
[~2018-05-15] VITALS: Ht 162.6 cm; Wt 83.9 kg
--- NOTE | 2018-05-15 23:19 | NUR ---
ED Nurse Note: pt walked in c/o abd pain and n/v started this morning, pt states he vomited x 6 times today. pt AA&ox4, gcs=15, skin warm and dry, resp even and unlabored on RA, -n/v/d active at this time, abd soft and tender, non distended, noted tenderness on lower abd area, ambulates w/ steady gait, will cont monitor.
--- NOTE | 2018-05-15 23:19 | NUR ---
ED Nurse Note: addendum: pt states he is also going through alcohol withdrawal sx, pt reports he used to drink everyday but stopped couple months and started drinking again for past 11 days, last drink was today 11am. will cont monitor.
[2018-05-15 23:20] VITALS: BP 136/89
[2018-05-15] MEDS ORDERED: chlordiazePOXIDE 25mg Cap ORAL ONE (23:30)
[2018-05-15] MEDS ORDERED: LORazepam Inj 2mg/ml 1ml IM ONE (23:30)
[2018-05-15] MEDS ORDERED: LIBRIUM25 MG ORAL (23:40)
--- NOTE | 2018-05-15 23:40 | Emergency Room Report ---
History of Present Illness General Chief Complaint: Abdominal Pain Source: Patient, Medical Record Present Illness HPI Is a 32-year-old male who is an alcoholic. He is well-known to me. He presents with chief complaint of epigastric pain and alcohol withdrawal. Last drink was 11 AM. He felt shaky. Occasional nausea vomiting. No blood. No fever chills. Similar symptom in the past. Pain is 7 out of 10. Denies any melena or rectal bleeding. He was at [facility] few days ago and prescribe Ativan. He said he did not have his insurance card so he couldn't fill it. Allergies: Coded Allergies: No Known Allergies (Unverified , 07/23/16) Patient History Past Medical History: see triage record, old chart reviewed Past Surgical History: none Pertinent Family History: none Social History: Reports: alcohol use Immunizations: other Reviewed Nursing Documentation: PMH: Agreed; PSxH: Agreed Nursing Documentation-PMH Hx Cardiac Problems: No - HEP C, Hep B, Anemia, Jaw dislocation surgery Hx Hypertension: Yes Hx Pacemaker: No Hx Asthma: No Hx COPD: No Hx Diabetes: Yes Hx Cancer: No Hx Gastrointestinal Problems: Yes - Liver Cirrhosis, Gastritis Hx Dialysis: No Hx Neurological Problems: No Hx Cerebrovascular Accident: No Hx Seizures: Yes Review of Systems Eye: Denies: eye pain, blurred vision ENT: Denies: ear pain, nose congestion, throat swelling Respiratory: Denies: cough, shortness of breath Cardiovascular: Denies: chest pain, palpitations Gastrointestinal: Reports: abdominal pain; Denies: diarrhea, nausea, vomiting Musculoskeletal: Denies: back pain, joint pain Skin: Denies: rash Neurological: Denies: headache, numbness Endocrine: Denies: increased thirst, increased urine Hematologic/Lymphatic: Denies: easy bruising All Other Systems: negative except mentioned in HPI Physical Exam Vital Signs Date Time Temp Pulse Resp B/P (MAP) Pulse Ox O2 Delivery O2 Flow Rate FiO2 05/15/18 23:05 98.4 120 18 136/89 97 Room Air vitals with tachycardia Sp02 EP Interpretation: reviewed, normal General Appearance: well appearing, no apparent distress, alert Head: normocephalic, atraumatic Eyes: bilateral eye PERRL, bilateral eye EOMI ENT: hearing grossly normal, normal pharynx Neck: full range of motion, supple, no meningismus Respiratory: chest non-tender, lungs clear, normal breath sounds Cardiovascular #1: regular rate, rhythm, no murmur Gastrointestinal: normal bowel sounds, non tender, no mass, no organomegaly, no bruit, non-distended Musculoskeletal: back normal, gait/station normal, normal range of motion Neurologic: alert, oriented x3, other - Tremulous Psychiatric: mood/affect normal Skin: warm/dry Medical Decision Making Diagnostic Impression: Primary Impression: Alcohol withdrawal Qualified Codes: F10.230 - Alcohol dependence with withdrawal, uncomplicated Additional Impression: Gastritis Qualified Codes: K29.20 - Alcoholic gastritis without bleeding ER Course Patient with alcohol withdrawal. Tremulous better after Ativan IM. Librium also given. We'll discharge home. Last Vital Signs Date Time Temp Pulse Resp B/P (MAP) Pulse Ox O2 Delivery O2 Flow Rate FiO2 05/15/18 23:05 98.4 120 18 136/89 97 Room Air Status: improved Disposition: HOME, SELF-CARE Condition: Stable Scripts Chlordiazepoxide (Chlordiazepoxide HCl) 25 Mg Capsule 25 MG ORAL THREE TIMES A DAY, #15 CAP 0 Refills Prov: Hoang Blair MD 05/15/18 Referrals: [facility] (PCP) Additional Instructions: Abstain from alcohol. Follow-up with rehabilitation in a week. Return if worse. Hoang Blair MD May 15, 2018 23:40
--- NOTE | 2018-05-16 00:10 | NUR ---
ED Nurse Note: pt clear to be d/c per ERMD, pt discharge and aftercare instruction provided w/ prescription, pt education done via discussion and handout, pt advised to follow up with pcp & rehab per ERMD or return to ed if sx worsen or new sx develop, pt vss, ambulatory w/ steady gait, left w/ all belongings.
[2018-05-16 00:11] VITALS: BP 126/76
== END 2018-05-16 00:12 | disposition home or self-care (01) ==
LOC: EMR 23:15
DX: F10.230 Alcohol dependence with withdrawal, uncomplicated (principal); K29.20 Alcoholic gastritis without bleeding; I10 Essential (primary) hypertension
CPT/HCPCS: 96372; 99283

== ENCOUNTER 2018-06-25 20:32 | Emergency (ER) | payer OTHER ==
[~2018-06-25] VITALS: Ht 162.6 cm; Wt 77.1 kg
--- NOTE | 2018-06-25 20:55 | NUR ---
ED Nurse Note: Pt admit he is drinking for 7 days and not eating the food. Pt is current anxiety attack and c/o abdominal pain. ACCOMPANIED BY FAMILY MEMBER. TESSA. AO4. VSS
[2018-06-25] MEDS ORDERED: LORazepam Inj 2mg/ml 1ml IV ONE (21:00)
[2018-06-25] MEDS ORDERED: Thiamine HCl 100 MG in D5W 55 ML IV ONE (21:00)
--- NOTE | 2018-06-25 21:00 | NUR ---
ED Nurse Note: IV ACCESS ESTABLISHED. BLOOD AND URINE COLLECTED; SENT DOWN TO LAB.
--- NOTE | 2018-06-25 21:01 | Emergency Room Report ---
History of Present Illness General Chief Complaint: Abdominal Pain Source: Patient Present Illness HPI Patient presents with shakes after drinking alcohol and not eating any food for 7 days. He has difficulty swallowing. He's been vomiting. There is no coffee grounds or blood. He's had diarrhea with out any melena. He denies any fevers. He has some diffuse mild as lower abdominal pain bilaterally. This is fairly constant. Pain rated 8/10, aching, not radiating. The patient's had withdrawal seizures in the past. He's not taking any anti- epileptic medication. The patient was last sober a month ago for 2 weeks. He denies suicidal or homicidal ideation. He has gone to [employer] meetings but has no sponsor. No chest pain, head ache or trauma, rashes, dysuria. 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 Reviewed Nursing Documentation: PMH: Agreed; PSxH: Agreed Nursing Documentation-PMH Hx Cardiac Problems: No - HEP C, Hep B, Anemia, Jaw dislocation surgery Hx Hypertension: Yes Hx Pacemaker: No Hx Asthma: No Hx COPD: No Hx Diabetes: Yes Hx Cancer: No Hx Gastrointestinal Problems: Yes - Liver Cirrhosis, Gastritis Hx Dialysis: No Hx Neurological Problems: No Hx Cerebrovascular Accident: No Hx Seizures: Yes Review of Systems All Other Systems: negative except mentioned in HPI Physical Exam Vital Signs Date Time Temp Pulse Resp B/P (MAP) Pulse Ox O2 Delivery O2 Flow Rate FiO2 06/25/18 20:40 98.4 99 20 98 Room Air Sp02 EP Interpretation: reviewed, normal General Appearance: well appearing, no apparent distress, GCS 15 Head: normocephalic, atraumatic Eyes: bilateral eye PERRL, bilateral eye EOMI, bilateral eye Scleral Injection ENT: moist mucus membranes Neck: supple Respiratory: lungs clear, normal breath sounds Cardiovascular #1: regular rate, rhythm Cardiovascular #2: 2+ radial (R) Gastrointestinal: normal inspection, normal bowel sounds, no mass, non- distended, no guarding, no rebound, tenderness - Minimal Musculoskeletal: back normal, gait/station normal, normal range of motion Neurologic: alert, oriented x3, motor strength/tone normal - slightly tremulous , DTRs symmetric, sensory intact, cerebellar normal, normal gait, speech normal Psychiatric: no suicidal/homicidal ideation, anxious Skin: normal inspection, warm/dry Medical Decision Making Diagnostic Impression: Primary Impression: Alcohol withdrawal Qualified Codes: F10.239 - Alcohol dependence with withdrawal, unspecified Additional Impression: Gastritis Qualified Codes: K29.20 - Alcoholic gastritis without bleeding ER Course Patient presents with alcohol use for 7 days and shakes. Differential includes impending delirium tremens, alcohol withdrawal, dehydration, gastritis, pancreatitis amongst others. The patient will be evaluated with EKG, chest x- ray and labs. The patient will be treated with IV hydration, thiamine and Ativan. Labs unremarkable. Doing well. Jam oral and no shakes. Discussed with patient and findings and need for follow up. Patient stable for outpatient observation and treatment. Laboratory Tests Test 06/25/18 21:00 White Blood Count 7.8 K/UL (4.8-10.8) Red Blood Count 4.80 M/UL (4.70-6.10) Hemoglobin 14.4 G/DL (14.2-18.0) Hematocrit 41.6 % (42.0-52.0) L Mean Corpuscular Volume 87 FL (80-99) Mean Corpuscular Hemoglobin 29.9 PG (27.0-31.0) Mean Corpuscular Hemoglobin Concent 34.6 G/DL (32.0-36.0) Red Cell Distribution Width 14.0 % (11.6-14.8) Platelet Count 204 K/UL (150-450) Mean Platelet Volume 6.9 FL (6.5-10.1) Neutrophils (%) (Auto) 61.9 % (45.0-75.0) Lymphocytes (%) (Auto) 29.0 % (20.0-45.0) Monocytes (%) (Auto) 6.9 % (1.0-10.0) Eosinophils (%) (Auto) 0.8 % (0.0-3.0) Basophils (%) (Auto) 1.3 % (0.0-2.0) Prothrombin Time 10.7 SEC (9.30-11.50) Prothrombin Time INR 1.0 (0.9-1.1) PTT 24 SEC (23-33) Urine Color Brown Urine Appearance Clear Urine pH 6.5 (4.5-8.0) Urine Specific [place] 1.015 (1.005-1.035) Urine Protein 2+ (NEGATIVE) H Urine Glucose (UA) Negative (NEGATIVE) Urine Ketones 1+ (NEGATIVE) H Urine Blood Negative (NEGATIVE) Urine Nitrite Negative (NEGATIVE) Urine Bilirubin Negative (NEGATIVE) Urine Urobilinogen 4 MG/DL (0.0-1.0) H Urine Leukocyte Esterase 1+ (NEGATIVE) H Urine RBC 0-2 /HPF (0 - 0) H Urine WBC 2-4 /HPF (0 - 0) Urine Squamous Epithelial Cells None /LPF (NONE/OCC) Urine Amorphous Sediment Few /LPF (NONE) H Urine Bacteria Few /HPF (NONE) Sodium Level 140 MMOL/L (136-145) Potassium Level 3.3 MMOL/L (3.5-5.1) L Chloride Level 101 MMOL/L (98-107) Carbon Dioxide Level 29 MMOL/L (21-32) Anion Gap 10 mmol/L (5-15) Blood Urea Nitrogen 14 mg/dL (7-18) Creatinine 0.8 MG/DL (0.55-1.30) Estimate Glomerular Filtration Rate > 60 mL/min (>60) Glucose Level 104 MG/DL (74-106) Calcium Level 8.8 MG/DL (8.5-10.1) Phosphorus Level 4.4 MG/DL (2.5-4.9) Magnesium Level 1.8 MG/DL (1.5-2.4) Total Bilirubin 2.1 MG/DL (0.2-1.0) H Direct Bilirubin 0.4 MG/DL (0.0-0.3) H Aspartate Amino Transferase (AST) 46 U/L (15-37) H Alanine Aminotransferase (ALT) 87 U/L (12-78) H Alkaline Phosphatase 94 U/L (46-116) Total Creatine Kinase 232 U/L (26-308) Total Protein 7.6 G/DL (6.4-8.2) Albumin 3.8 G/DL (3.4-5.0) Globulin 3.8 g/dL Albumin/Globulin Ratio 1.0 (1.0-2.7) Lipase 183 U/L (73-393) Salicylates Level < 0.2 ug/mL (2.8-20) L Urine Opiates Screen Negative (NEGATIVE) Acetaminophen Level < 2 MCG/ML (10-30) L Urine Barbiturates Screen Negative (NEGATIVE) Phencyclidine (PCP) Screen Negative (NEGATIVE) Urine Amphetamines Screen Negative (NEGATIVE) Urine Benzodiazepines Screen Negative (NEGATIVE) Urine Cocaine Screen Negative (NEGATIVE) Urine Marijuana (THC) Screen Negative (NEGATIVE) Serum Alcohol < 3 mg/dL EKG Diagnostic Results Rate: tachycardiac Rhythm: NSR ST Segments: no acute changes Rhythm Strip Diag. Results EP Interpretation: yes Rhythm: no PVC's, no ectopy, other - Sinus tachycardia Last Vital Signs Date Time Temp Pulse Resp B/P (MAP) Pulse Ox O2 Delivery O2 Flow Rate FiO2 06/26/18 00:40 98.4 89 14 118/85 100 Room Air Status: improved Disposition: HOME, SELF-CARE Condition: Improved Scripts Famotidine (PEPCID AC) 20 Mg Tablet 20 MG PO DAILY, #20 TAB Prov: Basil Hernandez MD 06/26/18 Ondansetron Odt* (ZOFRAN ODT*) 4 Mg Tab.rapdis 4 MG BC EVERY 8 HOURS PRN for Nausea & Vomiting, #6 TAB 0 Refills Prov: Basil Hernandez MD 06/26/18 Referrals: [facility]ERR[facility] (PCP) Basil Hernandez MD June 25, 2018 21:01
[2018-06-25 21:12] LABS: APPEARANCE,URINE CLEAR; BILIRUBIN, URINE NEGATIVE (NEGATIVE); COLOR,URINE BROWN; GLUCOSE, URINE (UA) NEGATIVE (NEGATIVE); KETONES,URINE 1+ (NEGATIVE); LEUKOCYTE ESTERASE ,URINE 1+ (NEGATIVE); NITRITE,URINE NEGATIVE (NEGATIVE); PH,URINE 6.5 (4.5-8.0); PROTEIN,URINE 2+ (NEGATIVE); UROBILINOGEN,URINE 4 MG/DL (0.0-1.0)
[2018-06-25 21:26] VITALS: BP 136/87
[2018-06-25 21:28] LABS: BASOPHILS % (AUTO) 1.3 % (0.0-2.0); EOSINOPHILS % (AUTO) 0.8 % (0.0-3.0); HEMATOCRIT 41.6 % (42.0-52.0); HEMOGLOBIN 14.4 G/DL (14.2-18.0); MEAN CORPUSCULAR VOLUME 87 FL (80-99); MONOCYTES % (AUTO) 6.9 % (1.0-10.0); NEUTROPHILS % (AUTO) 61.9 % (45.0-75.0); PLATELET COUNT 204 K/UL (150-450); WHITE BLOOD COUNT 7.8 K/UL (4.8-10.8)
[2018-06-25 21:43] LABS: ANION GAP 10 mmol/L (5-15); BLOOD UREA NITROGEN 14 mg/dL (7-18); CALCIUM 8.8 MG/DL (8.5-10.1); CARBON DIOXIDE 29 MMOL/L (21-32); CHLORIDE 101 MMOL/L (98-107); CREATININE 0.8 MG/DL (0.55-1.30); POTASSIUM 3.3 MMOL/L (3.5-5.1); SODIUM 140 MMOL/L (136-145)
[2018-06-25 21:55] LABS: ALANINE AMINOTRANSFERASE 87 U/L (12-78); ALBUMIN 3.8 G/DL (3.4-5.0); ALKALINE PHOSPHATASE 94 U/L (46-116); ASPARTATE AMINO TRANSFERASE 46 U/L (15-37); BILIRUBIN,TOTAL 2.1 MG/DL (0.2-1.0); CREATINE KINASE 232 U/L (26-308)
[2018-06-25 21:57] LABS: BILIRUBIN,DIRECT 0.4 MG/DL (0.0-0.3); PHOSPHORUS 4.4 MG/DL (2.5-4.9)
[2018-06-26 00:30] VITALS: BP 118/85
[2018-06-26] MEDS ORDERED: ONDANSETRON ODT4 MG BC (00:32)
[2018-06-26] MEDS ORDERED: PEPCID AC20 M2 PO (00:32)
[2018-06-26 00:40] VITALS: BP 118/85
--- NOTE | 2018-06-26 00:40 | NUR ---
ER DISCHARGE NOTE: Patient is cleared to be discharged per ERMD, pt is aox4, on room air, with stable vital signs. ACCOMPANIED BY FAMILY MEMBER. pt was given dc and prescription instructions, pt was able to verbalize understanding, pt id band and iv site removed without complications. pt is able to ambulate with steady gait. pt took all belongings.
== END 2018-06-26 00:40 | disposition home or self-care (01) ==
LOC: EMR 20:54
DX: R10.9 Unspecified abdominal pain (principal); K29.70 Gastritis, unspecified, without bleeding; I10 Essential (primary) hypertension; K74.60 Unspecified cirrhosis of liver; E11.9 Type 2 diabetes mellitus without complications
CPT/HCPCS: 36415; 80053; 80307; 80329; 81003; 82248; 82550; 83690; 83735; 84100; 85025; 85610; 85730; 93005; 96361; 96365; 96375; 99284

== ENCOUNTER 2018-07-13 22:37 | Emergency (ER) | payer OTHER ==
[~2018-07-13] VITALS: Ht 162.6 cm; Wt 79.4 kg
[~2018-07-13 22:37] MED LIST changes: +ONDANSETRON ODT4 MG BC; +PEPCID AC20 M2 PO
[2018-07-13 23:00] VITALS: BP 104/52
--- NOTE | 2018-07-13 23:00 | NUR ---
ED Nurse Note: Patient walked into ED c/o multiple problems, states that he is experiencing an anxiety attack but is not currently experiencing episode of tachypnea and is currently on his phone. patient reports of 10/10 earache with no reports of tinnitus, patient is alert and oriented x4, ambulatory with a steady gait, VSS
[2018-07-14] MEDS ORDERED: LORazepam 1mg tab ORAL ONE
[2018-07-14] MEDS ORDERED: LORazepam Inj 2mg/ml 1ml IM ONE (00:45)
[2018-07-14 01:15] LABS: APPEARANCE,URINE CLEAR; BILIRUBIN, URINE NEGATIVE (NEGATIVE); GLUCOSE, URINE (UA) NEGATIVE (NEGATIVE); KETONES,URINE NEGATIVE (NEGATIVE); LEUKOCYTE ESTERASE ,URINE NEGATIVE (NEGATIVE); NITRITE,URINE NEGATIVE (NEGATIVE); PH,URINE 6.5 (4.5-8.0); PROTEIN,URINE NEGATIVE (NEGATIVE); UROBILINOGEN,URINE 4 MG/DL (0.0-1.0)
[2018-07-14] MEDS ORDERED: ATIVAN1 MG ORAL (01:18)
[2018-07-14] MEDS ORDERED: PRILOSEC OTC20 MG ORAL (01:18)
[2018-07-14 01:22] LABS: COLOR,URINE YELLOW
[2018-07-14 01:30] VITALS: BP 104/52
--- NOTE | 2018-07-14 01:30 | NUR ---
ER DISCHARGE NOTE: Patient is cleared to be discharged per ERMD, pt is aox4, on room air, with stable vital signs. pt was given dc and prescription instructions, pt was able to verbalize understanding, pt id band removed without complications. pt is able to ambulate with steady gait. pt took all belongings.
--- NOTE | 2018-07-14 04:17 | Emergency Room Report ---
History of Present Illness General Chief Complaint: General Complaint Source: Patient, Medical Record Present Illness HPI Patient presented for increased agitation and tremulousness. Patient had recent heavy drinking binge for approximate 1 week. He subsequently discontinued alcohol use. He reports having prior history of gastritis as well as alcohol abuse. He denies any bleeding episodes. He reported having some episodes of vomiting. He denies any fever. He had not been having any black or bloody stools. Patient states his last drink was approximately 2 days ago Allergies: Coded Allergies: No Known Allergies (Unverified , 07/23/16) Patient History Reviewed Nursing Documentation: PMH: Agreed; PSxH: Agreed Nursing Documentation-PMH Hx Cardiac Problems: No - HEP C, Hep B, Anemia, Jaw dislocation surgery Hx Hypertension: Yes Hx Pacemaker: No Hx Asthma: No Hx COPD: No Hx Diabetes: Yes Hx Cancer: No Hx Gastrointestinal Problems: Yes - Liver Cirrhosis, Gastritis Hx Dialysis: No Hx Neurological Problems: Yes - seizure Apr 2018 Hx Cerebrovascular Accident: No Hx Seizures: Yes - From ETOH withdrawal Physical Exam Vital Signs Date Time Temp Pulse Resp B/P (MAP) Pulse Ox O2 Delivery O2 Flow Rate FiO2 07/13/18 22:48 97.7 98 18 104/52 (69) 97 Room Air Medical Decision Making Diagnostic Impression: Primary Impression: Alcohol withdrawal Additional Impression: Gastritis ER Course Patient presented for increased abdominal discomfort. Differential diagnosis include was not limited to alcohol withdrawal, dehydration, gastritis among others. Patient has a benign exam and does not appear to require any further imaging or laboratory testing at this time. Urinalysis ordered due to patient having some mild urinary frequency. Patient's urinalysis showed no evidence of urinary infection. Patient was given Ativan with improvement in his tremulousness. Patient appears to be stable for outpatient management. He was given prescription for Ativan as well as acid blockers. He is advised to continue alcohol cessation. Patient was advised to follow-up with his primary care physician for recheck. Laboratory Tests Test 07/14/18 01:00 Urine Color Yellow Urine Appearance Clear Urine pH 6.5 (4.5-8.0) Urine Specific [place] 1.015 (1.005-1.035) Urine Protein Negative (NEGATIVE) Urine Glucose (UA) Negative (NEGATIVE) Urine Ketones Negative (NEGATIVE) Urine Blood Negative (NEGATIVE) Urine Nitrite Negative (NEGATIVE) Urine Bilirubin Negative (NEGATIVE) Urine Urobilinogen 4 MG/DL (0.0-1.0) H Urine Leukocyte Esterase Negative (NEGATIVE) Last Vital Signs Date Time Temp Pulse Resp B/P (MAP) Pulse Ox O2 Delivery O2 Flow Rate FiO2 07/14/18 01:30 97.7 86 18 104/52 97 Room Air Status: improved Disposition: HOME, SELF-CARE Condition: Stable Scripts Omeprazole Magnesium (PRILOSEC OTC) 20 Mg Tablet.dr 20 MG ORAL DAILY, #30 TAB Prov: Anish Vann MD 07/14/18 Lorazepam* (ATIVAN*) 1 Mg Tablet 1 MG ORAL THREE TIMES A DAY, #14 TAB Prov: Anish Vann MD 07/14/18 Referrals: [facility]ERR[facility] (PCP) Patient Instructions: Alcohol Withdrawal Anish Vann MD Jul 14, 2018 04:17
== END 2018-07-14 01:30 | disposition home or self-care (01) ==
LOC: EMR 23:59
DX: F10.239 Alcohol dependence with withdrawal, unspecified (principal); K29.70 Gastritis, unspecified, without bleeding; R11.10 Vomiting, unspecified; Z86.19 Personal history of other infectious and parasitic diseases; B19.10 Unspecified viral hepatitis B without hepatic coma; I10 Essential (primary) hypertension; E11.9 Type 2 diabetes mellitus without complications; G40.909 Epilepsy, unspecified, not intractable, without status epilepticus
CPT/HCPCS: 81003; 96372; 99283

== ENCOUNTER 2020-01-14 23:16 | Emergency (ER) | payer OTHER ==
[~2020-01-14] VITALS: Ht 162.6 cm; Wt 81.6 kg
--- NOTE | 2020-01-14 23:20 | NUR ---
unable to triage, patient no in waiting room
[2020-01-14 23:30] VITALS: BP 132/82
--- NOTE | 2020-01-14 23:32 | NUR ---
ED Nurse Note: Patient walked into ED c/o upper dental pain onset for the past 2 years however has gotten worse today. patient reports having "holes" primarily where his canine teeth are, rates his pain a 6/10 pain, pain is worsened with eating and drinking hot or cold liquids. patient is alert and oriented x4, ambulatory with a steady gait, vSS
[2020-01-14] MEDS ORDERED: AUGMENTIN 875-1 EAC1 ORAL (23:39)
[2020-01-14] MEDS ORDERED: IBUPROFEN600 M1 ORAL (23:39)
--- NOTE | 2020-01-14 23:40 | Emergency Room Report ---
History of Present Illness General Chief Complaint: Toothache Source: Patient, Medical Record Present Illness HPI 34-year-old male with a history of jaw fracture that required surgery. He was told by oral surgeon/dentist that this will cause him problems later on with infection in teeth falling out. He presents with chief complaint of dental pain. He has pain to the right upper jaw. Radiate upward. Every time he eats he felt a pulsating pain. No fever chills but no drainage. Pain is 7 out of 10. [id number] medicine not helping. No other complaint. Allergies: Coded Allergies: No Known Allergies (Unverified , 07/23/16) COVID-19 Screening Contact w/high risk pt: No Experienced COVID-19 symptoms?: No COVID-19 Testing performed DENTURE WAXER: No Patient History Past Medical History: see triage record, old chart reviewed Past Surgical History: other Pertinent Family History: none Social History: Denies: smoking Immunizations: other Reviewed Nursing Documentation: PMH: Agreed; PSxH: Agreed Nursing Documentation-PMH Past Medical History: No History, Except For Hx Cardiac Problems: No - HEP C, Hep B, Anemia, Jaw dislocation surgery Hx Hypertension: Yes Hx Pacemaker: No Hx Asthma: No Hx COPD: No Hx Diabetes: Yes Hx Cancer: No Hx Gastrointestinal Problems: Yes - Liver Cirrhosis, Gastritis Hx Dialysis: No Hx Neurological Problems: Yes - seizure Apr 2018 Hx Cerebrovascular Accident: No Hx Seizures: Yes - From ETOH withdrawal Review of Systems Eye: Denies: eye pain, blurred vision ENT: Denies: ear pain, nose congestion, throat swelling Respiratory: Denies: cough, shortness of breath Cardiovascular: Denies: chest pain, palpitations Gastrointestinal: Denies: abdominal pain, diarrhea, nausea, vomiting Musculoskeletal: Denies: back pain, joint pain Skin: Denies: rash Neurological: Denies: headache, numbness Endocrine: Denies: increased thirst, increased urine Hematologic/Lymphatic: Denies: easy bruising All Other Systems: negative except mentioned in HPI Physical Exam Vital Signs Date Time Temp Pulse Resp B/P (MAP) Pulse Ox O2 Delivery O2 Flow Rate FiO2 01/14/20 23:22 97.3 71 13 138/86 (103) 99 Room Air Vitals normal Sp02 EP Interpretation: reviewed, normal General Appearance: well appearing, no apparent distress, alert Head: normocephalic, atraumatic Eyes: bilateral eye PERRL, bilateral eye EOMI ENT: hearing grossly normal, normal pharynx Neck: full range of motion, supple, no meningismus Respiratory: chest non-tender, lungs clear, normal breath sounds Cardiovascular #1: regular rate, rhythm, no murmur Gastrointestinal: normal bowel sounds, non tender, no mass, no organomegaly, no bruit, non-distended Musculoskeletal: back normal, normal range of motion, gait/station normal Psychiatric: mood/affect normal Medical Decision Making Diagnostic Impression: Primary Impression: Toothache ER Course Presents with dental pain. No obvious abscess seen. Will discharge home with antibiotics. Last Vital Signs Date Time Temp Pulse Resp B/P (MAP) Pulse Ox O2 Delivery O2 Flow Rate FiO2 01/14/20 23:22 97.3 71 13 138/86 (103) 99 Room Air Status: improved Disposition: HOME, SELF-CARE Condition: Stable Scripts Ibuprofen* (MOTRIN*) 600 Mg Tablet 600 MG ORAL Q6H PRN for For Pain, #30 TAB 0 Refills Prov: Hoang Blair MD 01/14/20 Amoxicillin/Potassium Clav 875-125* (AUGMENTIN 875-125 TABLET*) 1 Each Tablet 1 TAB ORAL TWICE A DAY, #14 TAB Prov: Hoang Blair MD 01/14/20 Referrals: NON PHYSICIAN (PCP) Patient Instructions: Dental Pain Additional Instructions: Follow-up with dentist DAVID. Return if symptoms worsen. Hoang Blair MD Jan 14, 2020 23:39
[2020-01-14] MEDS: Augmentin 875mg Tab ORAL ONE (23:44)
[2020-01-14 23:45] VITALS: BP 125/80
[2020-01-14] MEDS: HYDROcodone/Acetamin 5/325 tab ORAL ONE (23:45)
== END 2020-01-14 23:45 | disposition home or self-care (01) ==
LOC: EMR 23:34
DX: K08.89 Other specified disorders of teeth and supporting structures (principal); E11.9 Type 2 diabetes mellitus without complications
CPT/HCPCS: 99282

== ENCOUNTER 2020-02-22 19:41 | Emergency (ER) | payer OTHER ==
[~2020-02-22] VITALS: Ht 162.6 cm; Wt 102.1 kg
[~2020-02-22 19:41] MED LIST changes: +AUGMENTIN 875-1 EAC1 ORAL; +IBUPROFEN600 M1 ORAL
--- NOTE | 2020-02-22 20:02 | NUR ---
ED Nurse Note: Pt walked in from home c/o multiple symptoms including alcohol withdrawal, tooth infection, and possible COVID symptoms. Pt's last drink was Friday. Pt c/o cough, headache, anxiety. Pt reports roommate has COVID. Respirations even and unlabored on room air. HR 120 on the monitor. A+Ox4, speaking in complete sentences.
[2020-02-22] MEDS ORDERED: LORazepam Inj 2mg/ml 1ml IV ONE (20:30)
[2020-02-22 21:16] VITALS: BP 138/79
[2020-02-22 21:25] LABS: BASOPHILS % (AUTO) 1.1 % (0.0-2.0); HEMATOCRIT 49.9 % (42.0-52.0); HEMOGLOBIN 16.8 G/DL (14.2-18.0); LYMPHOCYTES % (AUTO) 23.5 % (20.0-45.0); MEAN CORPUSCULAR VOLUME 90 FL (80-99); MONOCYTES % (AUTO) 6.7 % (1.0-10.0); NEUTROPHILS % (AUTO) 66.7 % (45.0-75.0); PLATELET COUNT 212 K/UL (150-450); RED BLOOD COUNT 5.55 M/UL (4.70-6.10); RED CELL DISTRIBUTION WIDTH 13.2 % (11.6-14.8); WHITE BLOOD COUNT 11.6 K/UL (4.8-10.8)
--- NOTE | 2020-02-22 21:31 | Emergency Room Report ---
History of Present Illness General Chief Complaint: Headache Source: Patient Present Illness HPI 34-year-old male presents for anxiety, alcohol withdrawal. States his last drink was 2 days ago. History of alcohol use. Was drinking every day straight for 1 week. 2 family members recently. Denies drug use. States he feels shaky and anxious. Denies fevers or chills. States that recent contact tested positive for Covid and is wondering if he may have Covid as well. No cough or congestion or shortness of breath. No other aggravating relieving factors. Denies any other associated symptoms Allergies: Coded Allergies: No Known Allergies (Unverified , 07/23/16) COVID-19 Screening Contact w/high risk pt: Yes Experienced COVID-19 symptoms?: Yes COVID-19 Testing performed NURSE TRANSPLANT: No Patient History Past Medical History: GERD, psych hx Past Surgical History: none Pertinent Family History: none Social History: Reports: alcohol use; Denies: smoking, drug use Immunizations: UTD Reviewed Nursing Documentation: PMH: Agreed; PSxH: Agreed Nursing Documentation-PMH Past Medical History: No History, Except For Hx Cardiac Problems: No - HEP C, Hep B, Anemia, Jaw dislocation surgery Hx Hypertension: Yes Hx Pacemaker: No Hx Asthma: No Hx COPD: No Hx Diabetes: Yes Hx Cancer: No Hx Gastrointestinal Problems: Yes - Liver Cirrhosis, Gastritis Hx Dialysis: No Hx Neurological Problems: Yes - seizure Apr 2018 Hx Cerebrovascular Accident: No Hx Seizures: Yes - From ETOH withdrawal Review of Systems All Other Systems: negative except mentioned in HPI Physical Exam Vital Signs Date Time Temp Pulse Resp B/P (MAP) Pulse Ox O2 Delivery O2 Flow Rate FiO2 02/22/20 20:02 98.8 129 22 127/79 (95) 95 Room Air Sp02 EP Interpretation: reviewed, normal General Appearance: no apparent distress, alert, GCS 15, non-toxic Head: normocephalic, atraumatic Eyes: bilateral eye normal inspection, bilateral eye PERRL ENT: hearing grossly normal, normal pharynx, no angioedema, normal voice Neck: full range of motion, supple/symm/no masses Respiratory: chest non-tender, lungs clear, normal breath sounds, speaking full sentences Cardiovascular #1: regular rate, rhythm, no edema Cardiovascular #2: 2+ carotid (R), 2+ carotid (L), 2+ radial (R), 2+ radial (L), 2+ dorsalis pedis (R), 2+ dorsalis pedis (L) Gastrointestinal: normal bowel sounds, non tender, soft, non-distended, no guarding, no rebound Rectal: deferred Genitourinary: normal inspection, no CVA tenderness Musculoskeletal: back normal, normal range of motion, gait/station normal, non- tender Neurologic: alert, motor strength/tone normal, oriented x3, sensory intact, responsive, speech normal Psychiatric: judgement/insight normal, memory normal, no suicidal/homicidal ideation, anxious Reflexes: 3+ bicep (R), 3+ bicep (L), 3+ tricep (R), 3+ tricep (L), 3+ knee (R), 3+ knee (L) Skin: no rash Lymphatic: no adenopathy Medical Decision Making Diagnostic Impression: Primary Impression: Alcohol withdrawal Qualified Codes: F10.239 - Alcohol dependence with withdrawal, unspecified Additional Impression: Anxiety Last Vital Signs Date Time Temp Pulse Resp B/P (MAP) Pulse Ox O2 Delivery O2 Flow Rate FiO2 02/22/20 21:16 98.5 112 20 138/79 99 Room Air Status: improved Disposition: HOME, SELF-CARE Condition: Stable Referrals: NON PHYSICIAN (PCP) Flavio Nichols MD Feb 22, 2020 21:31
[2020-02-22 21:38] LABS: ANION GAP 8 mmol/L (5-15); BLOOD UREA NITROGEN 14 mg/dL (7-18); CALCIUM 8.4 MG/DL (8.5-10.1); CARBON DIOXIDE 24 MMOL/L (21-32); CHLORIDE 106 MMOL/L (98-107); CREATININE 0.8 MG/DL (0.55-1.30); POTASSIUM 4.2 MMOL/L (3.5-5.1); SODIUM 138 MMOL/L (136-145)
[2020-02-22 21:43] LABS: ALANINE AMINOTRANSFERASE 76 U/L (12-78); ALBUMIN 3.4 G/DL (3.4-5.0); ALBUMIN/GLOBULIN RATIO 0.9 (1.0-2.7); ALKALINE PHOSPHATASE 157 U/L (46-116); ASPARTATE AMINO TRANSFERASE 56 U/L (15-37); BILIRUBIN,TOTAL 0.6 MG/DL (0.2-1.0)
[2020-02-22] MEDS ORDERED: FAMOTIDINE20 MG ORAL (22:02)
[2020-02-22] MEDS ORDERED: ONDANSETRON ODT4 MG BC (22:02)
[2020-02-22] MEDS ORDERED: LIBRIUM25 MG ORAL (22:02)
[2020-02-22 22:15] VITALS: BP 121/89
--- NOTE | 2020-02-22 22:15 | NUR ---
ER DISCHARGE NOTE: Patient is cleared to be discharged per ERMD, pt is aox4, on room air, with stable vital signs. pt was given dc and prescription instructions, pt was able to verbalize understanding, pt id band and iv site removed without complications. pt is able to ambulate with steady gait. pt took all belongings.
== END 2020-02-22 22:15 | disposition home or self-care (01) ==
LOC: EMR 20:04
DX: F10.239 Alcohol dependence with withdrawal, unspecified (principal); F41.9 Anxiety disorder, unspecified; I10 Essential (primary) hypertension; E11.9 Type 2 diabetes mellitus without complications; Z20.822 Contact with and (suspected) exposure to COVID-19
CPT/HCPCS: 36415; 80053; 80307; 85025; 96361; 96374; 96375; G0480; G0481; J2405; J7030; S0028; Z7502; 99284

== ENCOUNTER 2020-04-05 17:21 | Emergency (ER) | payer OTHER ==
[~2020-04-05] VITALS: Ht 162.6 cm; Wt 99.8 kg
[~2020-04-05 17:21] MED LIST changes: +FAMOTIDINE20 MG ORAL
[2020-04-05] MEDS ORDERED: LORazepam Inj 2mg/ml 1ml IV ONE ×2 (18:00→18:45)
[2020-04-05 18:01] VITALS: BP 140/83
--- NOTE | 2020-04-05 18:37 | Emergency Room Report ---
History of Present Illness General Chief Complaint: General Complaint Present Illness HPI 34-year-old male with history of alcohol abuse and minimizes due to alcohol withdrawal here complaining of tremors and is tachycardic. Patient reports that he had a loss in the family lately and has been starting to drink again since last Friday about 4 bottles of alcohol every day with the last drink taking 2 days prior to today. Also reports that this past Friday he used methamphetamine which he has not used before. Denies following up with a psychiatrist or any rehab places. Reports that last time he was given Librium it helped him however he never followed up with primary doctor for further evaluation in that regard. Denies any chest pain shortness of breath at this time. Complains of feeling nauseated and few bouts of nonbloody emesis. Complains of diarrhea however denies abdominal pain at this time. Denies fever and chills. Denies cough or congestion. Speaking in full sentences, has a steady gait. Appears to be slightly tachycardic upon arrival. (Audelia James) Allergies: Coded Allergies: No Known Allergies (Unverified , 07/23/16) COVID-19 Screening Contact w/high risk pt: No Experienced COVID-19 symptoms?: No COVID-19 Testing performed RENTAL AGENT: No (Audelia James) Patient History Past Medical History: see triage record Past Surgical History: none Pertinent Family History: none Reviewed Nursing Documentation: PMH: Agreed; PSxH: Agreed (Auedlia James) Nursing Documentation-PMH Hx Cardiac Problems: No - HEP C, Hep B, Anemia, Jaw dislocation surgery Hx Hypertension: Yes Hx Pacemaker: No Hx Asthma: No Hx COPD: No Hx Diabetes: Yes Hx Cancer: No Hx Gastrointestinal Problems: Yes - Liver Cirrhosis, Gastritis Hx Dialysis: No Hx Neurological Problems: Yes - seizure Apr 2018 Hx Cerebrovascular Accident: No Hx Seizures: Yes - From ETOH withdrawal (Audelia James) Review of Systems All Other Systems: negative except mentioned in HPI (Audelia James) Physical Exam Vital Signs Date Time Temp Pulse Resp B/P (MAP) Pulse Ox O2 Delivery O2 Flow Rate FiO2 04/05/20 17:27 98.4 110 25 165/90 (115) 93 Room Air Sp02 EP Interpretation: reviewed, abnormal - Tachycardia General Appearance: alert, GCS 15, non-toxic, mild distress Head: normocephalic, atraumatic Eyes: bilateral eye normal inspection, bilateral eye PERRL ENT: no angioedema Neck: supple, thyroid normal, no meningismus Respiratory: chest non-tender, lungs clear, normal breath sounds, no rhonchi, no respiratory distress, no retraction, no accessory muscle use Cardiovascular #1: regular rate, rhythm Cardiovascular #2: 2+ carotid (R), 2+ carotid (L), 2+ radial (R), 2+ radial (L), 2+ dorsalis pedis (R), 2+ dorsalis pedis (L) Gastrointestinal: normal bowel sounds, non tender, soft, no mass, no organomegaly, no peritonitis Genitourinary: no CVA tenderness Musculoskeletal: back normal Neurologic: alert, motor strength/tone normal, oriented x3, sensory intact, responsive, speech normal Psychiatric: judgement/insight normal, memory normal, anxious Skin: no rash Lymphatic: no adenopathy (Audelia James) Medical Decision Making PA Attestation All diagnoses and treatment plans were reviewed and discussed with my supervising physician Dr. Hernandez (Audelia James) Diagnostic Impression: Primary Impression: Alcohol withdrawal ER Course 34-year-old male with history of alcohol abuse and minimizes due to alcohol withdrawal here complaining of tremors and is tachycardic. Patient reports that he had a loss in the family lately and has been starting to drink again since last Friday about 4 bottles of alcohol every day with the last drink taking 2 days prior to today. Also reports that this past Friday he used methamphetamine which he has not used before. Denies following up with a psychiatrist or any rehab places. Reports that last time he was given Librium it helped him however he never followed up with primary doctor for further evaluation in that regard. Denies any chest pain shortness of breath at this time. Complains of feeling nauseated and few bouts of nonbloody emesis. Complains of diarrhea however denies abdominal pain at this time. Denies fever and chills. Denies cough or congestion. Speaking in full sentences, has a steady gait. Appears to be slightly tachycardic upon arrival. Patient denies SI and HI Ddx considered but are not limited to: Alcohol intoxication with altered level of consciousness, alcohol intoxication causing pancreatitis, alcohol abuse, multi drug use and alcohol intoxication, alcohol withdrawal Vital signs: are WNL, pt. is afebrile H&PE are most consistent with: Alcohol withdrawal ORDERS: CBC, CMP, UA, tox screen, lipase, EtOH serum level, Librium p.o., Zofran, Pepcid ER intervention: NS bolus, Ativan, Pepcid, Zofran DISCHARGE: At this time pt. is stable for d/c to home. Will provide printed patient care instructions, and any necessary prescriptions. Care plan and follow up instructions have been discussed with the patient prior to discharge. Follow-up with rehab places, avoid drinking alcohol, if worsening symptoms return to the emergency room (Audelia James) EKG Diagnostic Results Rate: tachycardiac Rhythm: NSR ST Segments: no acute changes Other Impression No acute ST changes (Audelia James) Chest X-Ray Diagnostic Results Chest X-Ray Diagnostic Results : Chest X-Ray Ordered: Yes # of Views/Limited/Complete: 1 View Indication: Other EP Interpretation: Yes PA Xray: Interpretation reviewed, by supervising MD, and agrees with findings. Interpretation: no consolidation, no effusion, no pneumothorax Impression: No acute disease Electronically Signed by: Audelia Larson PA-C (Audelia James) Chest X-Ray Diagnostic Results : Electronically Signed by: Yvon Verduzco documentation of Xray reviewed by me and is accurate, Basil Hernandez MD (Basil Hernandez MD) Last Vital Signs Date Time Temp Pulse Resp B/P (MAP) Pulse Ox O2 Delivery O2 Flow Rate FiO2 04/05/20 18:01 98.0 102 19 140/83 97 Room Air (Audelia James) Disposition: HOME, SELF-CARE Condition: Stable Scripts Famotidine* (Pepcid 20mg tablet*) 20 Mg Tablet 20 MG ORAL DAILY for Gerd, #30 TAB 0 Refills Prov: Audelia James 04/05/20 Ondansetron Odt* (ZOFRAN ODT*) 4 Mg Tab.rapdis 4 MG BC EVERY 8 HOURS, #10 TAB 0 Refills Prov: Audelia James 04/05/20 Chlordiazepoxide (Chlordiazepoxide HCl) 25 Mg Capsule 25 MG ORAL THREE TIMES A DAY, #15 CAP 0 Refills Prov: Audelia James 04/05/20 Referrals: [facility]ERR[facility] (PCP) Patient Instructions: Alcohol Withdrawal, [id number] Additional Instructions: Take medication as directed, avoid drinking alcohol, follow-up with rehab places, if worsening symptoms return to the emergency room also avoid using any other drugs such as methamphetamine. Audelia James Apr 05, 2020 18:37 Basil Hernandez MD Apr 06, 2020 02:49
[2020-04-05 18:44] LABS: APPEARANCE,URINE CLEAR; BILIRUBIN, URINE NEGATIVE (NEGATIVE); COLOR,URINE PALE YELLOW; GLUCOSE, URINE (UA) NEGATIVE (NEGATIVE); KETONES,URINE NEGATIVE (NEGATIVE); LEUKOCYTE ESTERASE ,URINE NEGATIVE (NEGATIVE); NITRITE,URINE NEGATIVE (NEGATIVE); PH,URINE 7 (4.5-8.0); PROTEIN,URINE NEGATIVE (NEGATIVE); UROBILINOGEN,URINE 1 MG/DL (0.0-1.0)
[2020-04-05 18:47] LABS: BASOPHILS % (AUTO) 1.3 % (0.0-2.0); EOSINOPHILS % (AUTO) 1.3 % (0.0-3.0); HEMATOCRIT 52.4 % (42.0-52.0); HEMOGLOBIN 17.2 G/DL (14.2-18.0); LYMPHOCYTES % (AUTO) 23.1 % (20.0-45.0); MEAN CORPUSCULAR VOLUME 92 FL (80-99); MONOCYTES % (AUTO) 8.8 % (1.0-10.0); NEUTROPHILS % (AUTO) 65.5 % (45.0-75.0); PLATELET COUNT 248 K/UL (150-450); RED BLOOD COUNT 5.69 M/UL (4.70-6.10); RED CELL DISTRIBUTION WIDTH 13.5 % (11.6-14.8); WHITE BLOOD COUNT 9.5 K/UL (4.8-10.8)
[2020-04-05 19:03] LABS: ANION GAP 9 mmol/L (5-15); BLOOD UREA NITROGEN 12 mg/dL (7-18); CALCIUM 9.2 MG/DL (8.5-10.1); CARBON DIOXIDE 27 MMOL/L (21-32); CHLORIDE 103 MMOL/L (98-107); POTASSIUM 3.6 MMOL/L (3.5-5.1); SODIUM 139 MMOL/L (136-145)
[2020-04-05 19:09] LABS: ALANINE AMINOTRANSFERASE 116 U/L (12-78); ALBUMIN 3.8 G/DL (3.4-5.0); ALBUMIN/GLOBULIN RATIO 0.9 (1.0-2.7); ALKALINE PHOSPHATASE 161 U/L (46-116); ASPARTATE AMINO TRANSFERASE 78 U/L (15-37); BILIRUBIN,TOTAL 0.8 MG/DL (0.2-1.0)
[2020-04-05] MEDS ORDERED: FAMOTIDINE20 MG ORAL (19:13)
[2020-04-05] MEDS ORDERED: ONDANSETRON ODT4 MG BC (19:13)
[2020-04-05] MEDS ORDERED: LIBRIUM25 MG ORAL (19:13)
[2020-04-05 19:35] VITALS: BP 118/62
--- NOTE | 2020-04-05 20:12 | NUR ---
ED Nurse Note: Pt cleared by health care Provider for discharge. D/C instructions/prescription was given and explained to pt, and pt verbalized understanding of teachings. All medical devices such as ID band removed. Pt is AAO x4, ambulatory and left with all personal belongings.
--- NOTE | 2020-04-06 13:12 | Diagnostic Imaging Report ---
Procedure: XRAY Chest 1v Reason for study: Chest pain Comparison films: None. FINDINGS: Radiograph is underexposed. Vascularity is normal. The lung sinclair are clear bilaterally. Cardiac and mediastinal silhouette are within normal limits. CP angles are sharp. The bony thorax appear unremarkable. IMPRESSION: NO ACUTE CARDIOPULMONARY DISEASE.
--- NOTE | 2020-04-06 19:16 | Cardiology Report ---
APPROVED REPORT EKG Measurement Heart [id number] <Conclusion> Sinus tachycardia Otherwise normal ECG
== END 2020-04-05 19:37 | disposition home or self-care (01) ==
LOC: EMR 17:35
DX: F10.239 Alcohol dependence with withdrawal, unspecified (principal); R00.0 Tachycardia, unspecified; Z86.19 Personal history of other infectious and parasitic diseases; E11.9 Type 2 diabetes mellitus without complications
CPT/HCPCS: 36415; 71045; 80053; 80307; 81003; 83690; 84484; 85025; 93005; 96361; 96374; 96375; 96376; G0480; J2405; J7030; S0028; Z7502; 99284

== ENCOUNTER 2020-04-30 19:12 | Emergency (ER) | payer OTHER ==
[~2020-04-30] VITALS: Ht 162.6 cm; Wt 99.8 kg
[2020-04-30 19:28] VITALS: BP 143/77
[2020-04-30] MEDS ORDERED: Fluorescein Strips LEFT EYE ONE (19:30)
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
[2020-04-30] MEDS ORDERED: ARTIFICIAL TEAR15 ML RIGHT EYE (19:39)
[2020-04-30] MEDS ORDERED: ACULAR5 ML RIGHT EYE (19:39)
[2020-04-30] MEDS ORDERED: chlordiazePOXIDE 25mg Cap ORAL ONE (19:45)
--- NOTE | 2020-04-30 20:01 | Diagnostic Imaging Report ---
EXAM: CT Maxillofacial Without Intravenous Contrast CLINICAL HISTORY: Facial pain. Facial injury. TECHNIQUE: Axial computed tomography images of the face without intravenous contrast. CTDI is 15.3 mGy and DLP is 333.8 mGy-cm. One or more of the following dose reduction techniques were used: automated exposure control, adjustment of the mA and/or kV according to patient size, use of iterative reconstruction technique. COMPARISON: No previous studies. FINDINGS: Bones/joints: Visualized calvarium is unremarkable. Zygomatic arches are within normal limits. Lamina papyracea are unremarkable. Maxilla is within normal limits. Orbital ribs are intact. Left mandibular condyles normal intact position. Findings suggestive of old fracture of the neck of the left mandibular condyle. Mandible is otherwise unremarkable. Soft tissues: Extensive soft tissue swelling about the right infraorbital region compatible with bruising. Orbits: Unremarkable. Sinuses: Unremarkable. No air-fluid levels. Nasal cavity/septum: Nasal bones are within normal limits. Other findings: Right tibial condyle is a normal intact position. 2.6 x 1.6 cm hematoma overlying the right maxillary region. IMPRESSION: 1. Hematoma soft tissue swelling about the right maxillary and right infraorbital regions. 2. No acute facial fracture detected. 3. Old healed fracture of the neck of the left mandibular condyle. This finding is best seen on series 7 image 26.
== END 2020-04-30 20:09 | disposition home or self-care (01) ==
LOC: EMR 19:38
DX: H11.31 Conjunctival hemorrhage, right eye (principal); S00.83XA Contusion of other part of head, initial encounter; Y04.2XXA Assault by strike against or bumped into by another person, initial encounter; Y92.9 Unspecified place or not applicable; I10 Essential (primary) hypertension; E11.9 Type 2 diabetes mellitus without complications; Z86.19 Personal history of other infectious and parasitic diseases
CPT/HCPCS: 70486; Z7502; 99284